=== PATIENT | male | born 1965 | race Caucasian/White ===

== ENCOUNTER 2016-11-15 12:24 | Outpatient (CLI) | payer MEDICARE ==
[~2016-11-15] VITALS: Ht 177.8 cm; Wt 90.0 kg
[~2016-11-15 12:24] MED LIST: ALPR1TAB7 PO; BUSP10TA95 PO; DIVA500T7 PO; GABA-488 PO; GEMF600T3 PO; GLIP5TAB13 PO; HYDR-3720 PO; LORA10TA7 PO; METF500T4 PO; MONT10TA21 PO; NABU750T PO; NEUPOGEN SQ; NF-ESOM40C PO; ONDN4T PO; OXYC-12 PO; PARO40TA2 PO; PRAV40TA PO; PROB500T8 PO; PROP80CA39 PO; RIZA10TA23 PO; TIZA4CAP6 PO
[2016-11-15 12:30] VITALS: BP 109/63
[2016-11-15] MEDS ORDERED: FILG480S2 IJ (12:41)
[2016-11-15] MEDS ORDERED: MECL-106 PO (12:41)
[2016-11-15] MEDS ORDERED: LISI40TA PO (12:41)
[2016-11-15] MEDS ORDERED: SUMA100T3 PO (12:41)
[2016-11-15] MEDS ORDERED: CITA40TA11 PO (12:41)
[2016-11-15] MEDS ORDERED: OMEP40CA36 PO (12:41)
--- OUTSIDE RECORDS SUMMARY | 2016-11-15 12:45 | XMS REPORT ---
Author Author Dominga Cline Organization [facility] Address [address] [place], [place] [id number] Care Team Providers Care Patient Resource Specialist Name Role Phone Dominga Cline PCP Dominga Cline PreferredProvider Allergies and Adverse Reactions Name Reaction Notes NO KNOWN DRUG ALLERGIES Plan of Treatment Planned Activity Comments Planned Date Planned Time Plan/Goal TDAP (7 & Older) 05/03/2016 12:00 AM Hemoglobin A1c measurement 08/10/2016 12:00 AM Thyroid stimulating hormone (TSH) measurement 08/10/2016 12:00 AM LIPID PANEL 08/10/2016 12:00 AM MICROALBUMIN UR RANDOM 08/10/2016 12:00 AM BMP 10/31/2016 12:00 AM CBC with Auto 10/31/2016 12:00 AM CX CHEST 2 VIEWS 10/31/2016 12:00 AM EKG. 10/31/2016 12:00 AM *Injection,Subcutaneous/Intramuscul 03/20/2013 12:00 AM Uric Acid 05/04/2013 12:00 AM CBC, WBC, platelets and automated differential 11/06/2013 12:00 AM CMP-Comprehensive metabolic panel 11/06/2013 12:00 AM CBC + platelets + diff auto 04/20/2014 12:00 AM CMP (comprehensive metabolic panel) 04/20/2014 12:00 AM Medications Active Name Start Date Estimated Completion Date SIG Comments rizatriptan 10 mg oral tablet 03/11/2014 TAKE ONE TABLET BY MOUTH ONCE, MAY REPEAT AT TWO HOUR INTERVALS. DO NOT EXCEED 30MG IN 24 HOURS. propranolol 80 mg oral tablet 09/13/2014 TAKE ONE TABLET BY MOUTH TWICE DAILY Maxalt 10 mg oral tablet 10/13/2014 take 1 tablet (10 mg) by oral route once , may repeat at 2 hour intervals; do not exceed 30 mg in 24 hours for 7 days divalproex 500 mg oral tablet extended release 24 hr 10/13/2014 take 1 tablet (500 mg) by oral route once daily for 30 days Neupogen 480 mcg/1.6 mL injection solution glipizide 2.5 mg oral tablet extended release 24hr 02/08/2015 TAKE TWO TABLETS BY MOUTH ONCE DAILY WITH BREAKFAST LORATADINE 10MG TAB 04/12/2015 TAKE ONE TABLET BY MOUTH ONCE DAILY meclizine 25 mg oral tablet 05/12/2015 TAKE ONE TABLET BY MOUTH TWICE DAILY NEEDED DIZZINESS rizatriptan 10 mg oral tablet 07/11/2015 TAKE ONE TABLET BY MOUTH AT ONSET OF MIGRAINE, MAY REPEAT AT 2 HOUR INTERVALS. DO NOT EXCEED 30 MG IN 24 HOURS metformin 500 mg oral tablet 08/01/2015 01/22/2017 take 1 tablet by oral route 2 times a day for 90 days glipizide 2.5 mg oral tablet extended release 24hr 08/02/2015 TAKE TWO TABLETS BY MOUTH ONCE DAILY WITH BREAKFAST LORATADINE 10MG TAB 08/10/2015 TAKE ONE TABLET BY MOUTH ONCE DAILY Synvisc 16 mg/2 mL intra-articular syringe 08/24/2015 inject 2 milliliters by intra-articular route x 1 - left ankle x 1 right ankle rizatriptan 10 mg oral tablet 10/12/2015 TAKE ONE TABLET BY MOUTH AT ONSET OF MIGRAINE, MAY REPEAT AT 2 HOUR INTERVALS. DO NOT EXCEED 30 MG IN 24 HOURS divalproex 500 mg oral tablet extended release 24 hr 10/12/2015 TAKE ONE TABLET BY MOUTH ONCE DAILY metformin 500 mg oral tablet 10/12/2015 TAKE TWO TABLETS BY MOUTH TWICE DAILY omeprazole 40 mg oral capsule,delayed release(DR/EC) 10/20/2015 TAKE ONE CAPSULE BY MOUTH ONCE DAILY LORATADINE 10MG TAB 11/11/2015 TAKE ONE TABLET BY MOUTH ONCE DAILY Maxalt 10 mg oral tablet 01/09/2016 take 1 tablet (10 mg) by oral route once , may repeat at 2 hour intervals; do not exceed 30 mg in 24 hours for 7 days meclizine 25 mg oral tablet 02/13/2016 TAKE ONE TABLET BY MOUTH TWICE DAILY NEEDED FOR DIZZINESS LORATADINE 10MG TAB 02/22/2016 TAKE ONE TABLET BY MOUTH ONCE DAILY glipizide 2.5 mg oral tablet extended release 24hr 02/22/2016 TAKE TWO TABLETS BY MOUTH ONCE DAILY WITH BREAKFAST tizanidine 4 mg oral tablet 03/12/2016 TAKE ONE TABLET BY MOUTH THREE TIMES DAILY NEEDED pravastatin 40 mg oral tablet 03/13/2016 TAKE ONE TABLET BY MOUTH ONCE DAILY AT BEDTIME buspirone 10 mg oral tablet 05/09/2016 TAKE ONE TABLET BY MOUTH THREE TIMES DAILY divalproex 500 mg oral tablet extended release 24 hr 06/12/2016 TAKE ONE TABLET BY MOUTH ONCE DAILY glipizide 2.5 mg oral tablet extended release 24hr 06/12/2016 TAKE TWO TABLETS BY MOUTH ONCE DAILY WITH BREAKFAST metformin 500 mg oral tablet 06/12/2016 TAKE TWO TABLETS BY MOUTH TWICE DAILY propranolol 80 mg oral tablet 06/12/2016 TAKE ONE TABLET BY MOUTH TWICE DAILY lisinopril 10 mg oral tablet 08/10/2016 02/06/2017 take 1 tablet (10 mg) by oral route once daily for 30 days gabapentin 300 mg oral capsule 08/13/2016 TAKE TWO CAPSULES BY MOUTH THREE TIMES DAILY FOR 30 DAYS Celexa 40 mg oral tablet 08/16/2016 07/12/2017 take 1 tablet (40 mg) by oral route once daily in the morning for 30 days oxycodone-acetaminophen 7.5-325 mg oral tablet 10/09/2016 11/08/2016 take 1 tablet by oral route every 8 hours as needed for 30 days pain tizanidine 4 mg oral tablet 10/15/2016 TAKE ONE TABLET BY MOUTH THREE TIMES DAILY NEEDED pravastatin 40 mg oral tablet 10/15/2016 TAKE ONE TABLET BY MOUTH ONCE DAILY AT BEDTIME alprazolam 1 mg oral tablet 10/15/2016 11/14/2016 take 0.5 tablet by oral route 2 times a day for 30 days sumatriptan succinate 25 mg oral tablet 10/15/2016 12/14/2016 take 1 tablet ( 25 mg) by oral route once with fluids as early as possible after the onset of a migraine attack;may repeat after 2 hours if headache returns, not to exceed 200mg in 24hrs for 30 days Name Start Date Expiration Date SIG Comments cyclobenzaprine 10 mg oral tablet 05/30/2010 07/29/2010 take 1 tablet by oral route 2 times a day as needed for 30 days tramadol 50 mg oral tablet 08/10/2010 10/09/2010 take 1-2 tablets by oral route every 8 hours as needed for 30 days Bactrim DS 800-160 mg oral tablet 08/14/2010 08/24/2010 take 1 tablet by oral route every 12 hours for 10 days Tessalon Perles 100 mg oral capsule 01/04/2011 01/14/2011 take 1 capsule (100 mg) by oral route 3 times per day for 10 days PAROXETINE 20MG TAB 20 each 02/08/2011 03/10/2011 2QD - TAKE TWO TABLETS BY MOUTH EVERY DAY Bactrim DS 800-160 mg oral tablet 02/13/2011 02/23/2011 take 1 tablet by oral route every 12 hours for 10 days Dexilant 60 mg oral capsule,biphase delayed releas 10/05/2011 11/04/2011 TAKE ONE BY MOUTH EVERY DAY not on pt formulary alprazolam 0.5 mg oral tablet 10/10/2011 11/09/2011 take 1 tablet by oral route 2 times a day as needed for 30 days Relpax 40 mg oral tablet 10/11/2011 10/11/2011 take 1 tablet (40 mg) by oral route ; if headache returns, the dose may be repeated after 2 hours, but no more than two doses should be given within a 24-hour period. not on formulary colchicine 0.6 mg 10/17/2011 02/14/2012 1 tab po daily amoxicillin 875 mg oral tablet 10/30/2011 11/09/2011 take 1 tablet (875 mg) by oral route every 12 hours for 10 days probenecid Oral 500 mg 11/14/2011 02/12/2012 1 tab po BID Niaspan Extended-Release 500 mg oral tablet extended release 24 hr 01/09/2012 07/07/2012 take 1 tablet (500 mg) by oral route once daily at bedtime after a low-fat snack - after 4 weeks increase to 2 tablets hs divalproex 250 mg oral tablet,delayed release (DR/EC) 07/07/2012 08/06/2012 TAKE ONE TABLET BY MOUTH TWICE DAILY tramadol 50 mg oral tablet 08/10/2010 09/09/2010 [id number] - TAKE ONE TO TWO TABLETS BY MOUTH EVERY 8 HOURS NEEDED FOR PAIN NORFLEX 100MG CR TAB 100 each 12/29/2010 01/18/2011 [id number] - TAKE ONE TABLET BY MOUTH TWICE DAILY NEEDED gemfibrozil 600 mg oral tablet 11/09/2011 12/09/2011 TAKE ONE TABLET BY MOUTH TWICE DAILY FOR TRIGLYCERIDES paroxetine HCl 40 mg oral tablet 02/06/2012 03/07/2012 TAKE ONE TABLET BY MOUTH EVERY DAY Klor-Con M20 20 mEq oral tablet,ER particles/crystals 04/01/2012 05/01/2012 TAKE ONE TABLET BY MOUTH EVERY DAY Niaspan Extended-Release 1,000 mg oral tablet extended release 24 hr 05/12/2012 06/11/2012 TAKE ONE TABLET BY MOUTH AT BEDTIME orphenadrine citrate 100 mg oral tablet extended release 09/10/20112010 TAKE ONE TABLET BY MOUTH TWICE DAILY NEEDED FOR PAIN Singulair 10 mg oral tablet 08/08/2012 09/07/2012 TAKE ONE TABLET BY MOUTH IN THE EVENING Augmentin 875-125 mg oral tablet 10/13/2012 10/23/2012 take 1 tablet by oral route every 12 hours for 10 days EpiPen 0.3 mg/0.3 mL injection auto-injector 01/05/2013 01/06/2013 INJECT 0.3MG INTRAMUSCULARLY ONCE NEEDED FOR ANAPHYLAXIS Tamiflu 75 mg oral capsule 01/05/2013 01/10/2013 take 1 capsule (75 mg) by oral route 2 times per day for 5 days divalproex 250 mg oral tablet,delayed release (DR/EC) 02/07/2013 03/09/2013 TAKE ONE TABLET BY MOUTH THREE TIMES DAILY Zithromax Z-Joseph 250 mg oral tablet 06/19/2013 06/24/2013 take 2 tablets (500 mg) by oral route once daily for 1 day then 1 tablet (250 mg) by oral route once daily for 4 days nabumetone 750 mg oral tablet 07/10/2013 07/10/2013 take 1 tablet (750 mg) by oral route 2 times per day Bactrim DS 800-160 mg oral tablet 07/23/2013 08/02/2013 take 1 tablet by oral route every 12 hours for 10 days Bactrim DS 800-160 mg oral tablet 09/17/2012 10/13/2012 take 1 tablet by oral route every 12 hours for 10 days diclofenac sodium 75 mg oral tablet,delayed release (DR/EC) 02/10/20102012 cyclobenzaprine 10 mg oral tablet 11/01/2010 11/05/2012 tizanidine 2 mg oral capsule 11/05/2012 12/19/2012 take 1 capsules by oral route every8 hours/PRN Medrol (Joseph) 4 mg oral tablets,dose pack 08/21/2013 08/28/2013 take as directed for 7 days probenecid 500 mg oral tablet 05/04/2013 10/31/2013 take 1 tablet by oral route 2 times a day for 30 days Duexis 800-26.6 mg oral tablet 08/26/2013 09/25/2013 take 1 tablet by oral route 3 times per day for 30 days Synvisc 16 mg/2 mL intra-articular syringe 08/31/2013 09/03/2013 inject 2 milliliters by intra-articular route once a week for 3 days Bactrim DS 800-160 mg oral tablet 09/23/2013 10/03/2013 take 1 tablet by oral route 2 times per day for 10 days lisinopril 20 mg oral tablet 09/11/2013 03/10/2014 take 1 tablet (20 mg) by oral route once daily for 90 days ibuprofen 800 mg oral tablet 10/13/2013 04/11/2014 take 1 tablet by oral route 3 times a day for 30 days tizanidine 4 mg oral capsule 01/13/2014 01/08/2015 take 1 capsule by oral route 3 times a day as needed for 30 days nabumetone 750 mg oral tablet 01/17/2014 07/16/2014 take 1 tablet (750 mg) by oral route 2 for 90 days hydrocortisone acetate 30 mg rectal suppository 02/09/2014 03/09/2014 insert 1 suppository (30 mg) by rectal route 2 times per day in the morning and at for 14 days metformin 500 mg oral tablet 03/12/2014 09/08/2014 TAKE TWO TABLETS BY MOUTH TWICE DAILY loratadine 10 mg oral tablet 03/12/2014 03/07/2015 TAKE ONE TABLET BY MOUTH EVERY DAY Singulair 10 mg oral tablet 03/15/2014 09/11/2014 take 1 tablet (10 mg) by oral route once daily in the evening for 30 days Glucometer 3 1 meter/starter kit 04/02/2014 05/02/2014 Tests QD. Needs new meter and one month strips. Uncontrolled DMII with periods of hypoglycemia. promethazine-codeine 6.25-10 mg/5 mL oral syrup 04/13/2014 take 5 milliliters by oral route every 4-6 hours as needed, not to exceed 30 mL in 24 hours propranolol 80 mg oral tablet 04/20/2014 08/18/2014 TAKE ONE TABLET BY MOUTH TWICE DAILY probenecid 500 mg oral tablet 06/18/2014 10/16/2014 1 tab po BID Maxalt 10 mg oral tablet 07/16/2014 07/30/2014 take 1 tablet (10 mg) by oral route once, may repeat at 2 hour intervals; do not exceed 30 mg in 24 hours for 7 days divalproex 500 mg oral tablet extended release 24 hr 07/16/2014 10/14/2014 take 1 tablet (500 mg) by oral route once daily for 30 days glipizide 2.5 mg oral tablet extended release 24hr 08/12/2014 02/08/2015 take 2 tablets (5 mg) by oral route once daily with breakfast for 90 days meclizine 25 mg oral tablet 10/12/2014 01/10/2015 TAKE ONE TABLET BY MOUTH TWICE DAILY NEEDED DIZZINESS metoclopramide HCl 10 mg oral tablet 01/31/2015 03/02/2015 take 1 tablet by oral route 2 times a day for 30 days Tylenol Extra Strength 500 mg oral tablet 01/31/2015 07/30/2015 take 1 tablet by oral route every 12 hours for 30 days pravastatin 40 mg oral tablet 03/14/2015 03/08/2016 take 1 tablet (40 mg) by oral route once daily at bedtime for 90 days buspirone 10 mg oral tablet 05/12/2015 11/08/2015 TAKE ONE TABLET BY MOUTH THREE TIMES DAILY propranolol 80 mg oral tablet 05/12/2015 11/08/2015 TAKE ONE TABLET BY MOUTH TWICE DAILY for 30 days lisinopril 20 mg oral tablet 05/16/2015 10/13/2015 take 1 tablet (20 mg) by oral route once daily for 30 days Tessalon Perles 100 mg oral capsule 10/24/2015 take 1 capsule by oral route TID PRN for cough codeine-guaifenesin 10-100 mg/5 mL oral liquid 10/24/2015 10/29/2015 take 10 milliliters by oral route every 4 hours as needed for 5 days gabapentin 300 mg oral capsule 03/12/2016 06/10/2016 take 2 capsules (600 mg) by oral route 3 times per day for 30 days Voltaren 1 % topical gel 03/15/2016 04/14/2016 apply 4 gram to the affected area (s) by topical route 4 times per day for 30 days Sudafed PE Pressure+Pain+Cough 5-10-325 mg oral tablet 04/03/2016 04/10/2016 take 1 tablet by oral route as directed ProAir HFA 90 mcg/actuation inhalation HFA aerosol inhaler 04/03/20162015 inhale 1 puff (90 mcg) by inhalation route every 6 hours as needed for 30 days Discontinued Name Start Date Discontinued Date SIG Comments Lortab 7.5-500 mg oral tablet 01/09/2010 04/04/2010 1 tab TID prn pain famotidine 20 mg oral tablet 01/11/2010 07/10/2011 take 1 tablet (20 mg) by oral route 2 times per day diclofenac sodium 75 mg oral tablet,delayed release (DR/EC) 02/10/20102009 take 1 tablet (75 mg) by oral route 2 times per day sulindac 200 mg oral tablet 10/24/2010 take 1 tablet (200 mg) by oral route 2 times per day with food paroxetine HCl 40 mg oral tablet 06/08/2010 01/01/2011 take 1 tablet (40 mg) by oral route daily for 30 days Medrol (Joseph) 4 mg oral tablets,dose pack 07/27/2010 08/14/2010 take as directed by package insert Bactroban 2 % topical ointment 08/14/2010 11/13/2010 apply 1/2 gram to each nostril bid for 5 days lisinopril-hydrochlorothiazide 20-12.5 mg oral tablet 10/16/2010 11/13/2010 take 1 tablet by oral route once daily for 30 days nabumetone 750 mg oral tablet 11/13/2010 take 1 tablet (750 mg) by oral route 2 times per day metformin 1,000 mg oral tablet 02/06/2013 take 1 tablet (1,000 mg) by oral route 2 times per day with morning and evening meals Lopid 600 mg oral tablet 05/07/2011 take 1 tablet (600 mg) by oral route 2 times per day 30 minutes before morning and evening meal potassium chloride 20 mEq oral tablet,ER particles/crystals 02/06/2013 take 1 tablet (20 meq) by oral route once daily with food cyclobenzaprine 10 mg oral tablet 05/17/2011 take 1 tablet (10 mg) by oral route 2 times per day /PRN Colace 100 mg oral capsule 05/04/2013 take 1 capsule (100 mg) by oral route 2 times per day as needed nabumetone 750 mg oral tablet 11/05/2012 take 2 tablets (1,500 mg) by oral route once daily gemfibrozil 600 mg oral tablet 05/07/2011 take 1 tablet (600 mg) by oral route 2 times per day 30 minutes before morning and evening meal fluoxetine 40 mg oral capsule 01/01/2011 01/09/2011 take 1 capsule (40 mg) by oral route once daily in the morning sertraline 50 mg oral tablet 01/09/2011 02/08/2011 take 1 tablet (50 mg) by oral route once daily Norflex 100 mg 05/17/2011 07/10/2011 1 tab po BID/PRN norflex orally 10 mg 09/11/2011 1 tab po BID Maxalt 10 mg oral tablet 10/23/2011 05/04/2013 take 1 tablet (10 mg) by oral route once, may repeat at 2 hour intervals; do not exceed 30 mg in 24 hours Norflex 100 mg 12/20/2011 04/16/2012 1 tab po BID/PRN paroxetine HCl 40 mg oral tablet 01/09/2012 04/10/2012 TAKE ONE TABLET BY MOUTH EVERY DAY Cymbalta 60 mg oral capsule,delayed release(DR/EC) 04/10/2012 04/22/2012 take 1 capsule (60 mg) by oral route once daily Effexor XR 75 mg oral capsule,extended release 24hr 04/22/2012 04/30/2012 take 1 capsule (75 mg) by oral route once daily with food Xanax 0.5 mg oral tablet 04/30/2012 09/22/2012 take 1 tablet by oral route 2 times a day as needed Depakote 250 mg oral tablet,delayed release (DR/EC) 07/11/2012 05/04/2013 take 1 tablet (250 mg) by oral route 3 times per day albuterol sulfate 90 mcg/actuation inhalation HFA aerosol inhaler 10/13/201205/12/2013 inhale 1 - 2 puffs by inhalation route every 4 hours as needed omeprazole 40 mg oral capsule,delayed release(DR/EC) 11/13/2012 04/13/2013 take 1 capsule by oral route daily Nexium 40 mg oral capsule,delayed release(DR/EC) 04/13/2013 10/08/2013 take 1 capsule (40 mg) by oral route once daily for 30 days omeprazole 40 mg oral capsule,delayed release(DR/EC) 05/18/2013 06/17/2013 take 1 capsule (40 mg) by oral route once daily before a meal for 30 days promethazine-codeine 6.25-10 mg/5 mL oral syrup 06/12/2013 08/31/2013 take 5 milliliters by oral route every 4-6 hours as needed, not to exceed 30 mL in 24 hours Percocet 5-325 mg oral tablet 08/17/2013 take 1 tablet by oral route every 6 hours as needed divalproex 250 mg oral tablet,delayed release (DR/EC) 09/10/2013 11/06/2013 TAKE ONE TABLET BY MOUTH THREE TIMES DAILY Dexilant 60 mg oral capsule,biphase delayed releas 04/13/2014 orphenadrine citrate 100 mg oral tablet extended release 12/31/2013 take 1 tablet (100 mg) by oral route 2 times per day in the morning and evening paroxetine HCl 40 mg oral tablet 01/13/2014 11/09/2014 take 1 tablet (40 mg) by oral route once daily for 90 days Megace 400 mg/10 mL (40 mg/mL) oral suspension 04/23/2014 06/18/2014 take 10 milliliters (400 mg) by oral route once daily for 30 days Zofran (as hydrochloride) 4 mg oral tablet 04/23/2014 01/31/2015 take 1 tab PO every 6-8 hours as needed for nausea and/or vomiting hydrocodone-acetaminophen 10-325 mg oral tablet 09/10/2014 09/27/2014 take 1 tablet by oral route every 8 hours as needed for 31 days probenecid 500 mg oral tablet 10/11/2014 03/14/2015 TAKE ONE TABLET BY MOUTH TWICE DAILY Nexium 40 mg oral capsule,delayed release(DR/EC) 11/11/2014 01/31/2015 take 1 capsule (40 mg) by oral route once daily for 30 days gemfibrozil 600 mg oral tablet 01/14/2015 05/02/2015 take 1 tablet (600 mg) by oral route 2 times per day 30 minutes before morning and evening meal for 90 days Problem List Description Status Onset SI joint pain Active 08/25/2009 Pain in joint; ankle and foot Active 08/25/2009 Cervicalgia Active 08/25/2009 arthritis Active Depressive Disorder Active Joint Pain Active chronic lumbar back pain Active Osteoporosis Active Hypertension Active Diabetes Mellitus, Type II Active Migraine Active 09/06/2011 Esophageal Reflux Active 11/06/2013 Ankle pain, chronic, right Active 09/06/2015 Chronic ankle pain, left Active 09/13/2015 Vital Signs Date Time BP-Sys(mm[Hg] BP-Emily(mm[Hg]) HR(bpm) RR(rpm) Temp WT HT HC BMI BSA BMI Percentile O2 Sat(%) 08/10/2016 8:33:00 AM 110 mmHg 80 mmHg 67 bpm 16 rpm 97.7 F 197.125 lbs 70 in 28.28 kg/m2 2.10 m2 99 % 07/16/2016 2:32:00 PM 118 mmHg 72 mmHg 75 bpm 16 rpm 100 F 201.125 lbs 70 in 28.8581 kg/m 2.1227 m 99 % 06/05/2016 9:22:00 AM 132 mmHg 74 mmHg 66 bpm 16 rpm 98.5 F 195 lbs 70 in 27.98 kg/m2 2.09 m2 98 % 05/03/2016 1:38:00 PM 100 mmHg 70 mmHg 79 bpm 16 rpm 100.4 F 190 lbs 70 in 27.2619 kg/m 2.0631 m 98 % 04/03/2016 11:19:00 AM 118 mmHg 70 mmHg 72 bpm 18 rpm 99.3 F 198.25 lbs 70 in 28.45 kg/m2 2.11 m2 98 % 03/15/2016 8:42:00 AM 118 mmHg 68 mmHg 78 bpm 18 rpm 97.6 F 201 lbs 71 in 28.0335 kg/m 2.1371 m 97 % 02/13/2016 8:50:00 AM 130 mmHg 80 mmHg 67 bpm 16 rpm 97.8 F 208 lbs 70 in 29.84 kg/m2 2.16 m2 98 % 01/13/2016 8:55:00 AM 100 mmHg 60 mmHg 71 bpm 16 rpm 96.7 F 209 lbs 70 in 29.9881 kg/m 2.1638 m 99 % 12/16/2015 10:50:00 AM 108 mmHg 60 mmHg 68 bpm 16 rpm 97.8 F 209 lbs 70 in 29.99 kg/m2 2.16 m2 97 % 11/21/2015 4:01:00 PM 124 mmHg 84 mmHg 86 bpm 99.5 F 211 lbs 70 in 30.275 kg/m 2.1742 m 96 % 10/24/2015 9:12:00 AM 79 bpm 20 rpm 98.9 F 204.2 lbs 97 % 10/21/2015 9:28:00 AM 108 mmHg 60 mmHg 73 bpm 98 F 202.25 lbs 70 in 29.02 kg/m2 2.1286 m 96 % 09/13/2015 9:43:00 AM 122 mmHg 64 mmHg 80 bpm 20 rpm 97.8 F 200 lbs 70 in 28.6967 kg/m 2.12 m2 09/06/2015 1:42:00 PM 112 mmHg 66 mmHg 84 bpm 20 rpm 97.8 F 200 lbs 70 in 28.70 kg/m2 2.1167 m 08/23/2015 1:50:00 PM 116 mmHg 72 mmHg 66 bpm 18 rpm 97 F 200 lbs 70 in 28.6967 kg/m 2.12 m2 08/01/2015 11:28:00 AM 118 mmHg 64 mmHg 66 bpm 97.8 F 199.375 lbs 70 in 28.61 kg/m2 2.1134 m 96 % 07/04/2015 10:08:00 AM 110 mmHg 64 mmHg 66 bpm 18 rpm 97.3 F 205 lbs 70 in 29.4141 kg/m 2.14 m2 06/06/2015 10:02:00 AM 114 mmHg 74 mmHg 68 bpm 18 rpm 96 F 206 lbs 70 in 29.56 kg/m2 2.1482 m 05/09/2015 1:19:00 PM 108 mmHg 70 mmHg 71 bpm 20 rpm 96.5 F 208 lbs 70 in 29.8446 kg/m 2.16 m2 05/02/2015 1:37:00 PM 120 mmHg 74 mmHg 82 bpm 18 rpm 97.6 F 208.375 lbs 70 in 29.90 kg/m2 2.1606 m 98 % 04/11/2015 1:17:00 PM 138 mmHg 84 mmHg 75 bpm 22 rpm 96.8 F 209 lbs 70 in 29.9881 kg/m 2.16 m2 04/04/2015 11:02:00 AM 128 mmHg 82 mmHg 71 bpm 20 rpm 96.3 F 204 lbs 70 in 29.27 kg/m2 2.1378 m 03/14/2015 1:46:00 PM 128 mmHg 82 mmHg 84 bpm 18 rpm 97.5 F 204 lbs 70 in 29.2707 kg/m 2.14 m2 02/10/2015 10:15:00 AM 96 mmHg 58 mmHg 62 bpm 18 rpm 97 F 208 lbs 70 in 29.84 kg/m2 2.1586 m 01/31/2015 1:24:00 PM 120 mmHg 88 mmHg 80 bpm 98.8 F 205.5 lbs 70 in 29.4859 kg/m 2.15 m2 97 % 01/13/2015 1:01:00 PM 130 mmHg 88 mmHg 68 bpm 16 rpm 97.2 F 209.125 lbs 70 in 30.01 kg/m2 2.1645 m 12/16/2014 1:07:00 PM 108 mmHg 62 mmHg 78 bpm 18 rpm 97.5 F 205 lbs 70 in 29.4141 kg/m 2.14 m2 12/01/2014 1:02:00 PM 132 mmHg 64 mmHg 76 bpm 20 rpm 97.1 F 205 lbs 70 in 29.41 kg/m2 2.143 m 11/23/2014 9:40:00 AM 108 mmHg 60 mmHg 76 bpm 18 rpm 97.4 F 205 lbs 70 in 29.4141 kg/m 2.14 m2 11/09/2014 11:38:00 AM 100 mmHg 60 mmHg 82 bpm 18 rpm 97.8 F 199.5 lbs 70 in 28.62 kg/m2 2.1141 m 96 % 10/25/2014 12:53:00 PM 100 mmHg 64 mmHg 73 bpm 18 rpm 97 F 206 lbs 70 in 29.5576 kg/m 2.15 m2 10/14/2014 10:47:00 AM 120 mmHg 80 mmHg 82 bpm 20 rpm 98.3 F 208.2 lbs 70 in 29.87 kg/m2 2.1597 m 97 % 09/27/2014 1:39:00 PM 112 mmHg 70 mmHg 78 bpm 16 rpm 98.4 F 200 lbs 70 in 28.6967 kg/m 2.12 m2 09/01/2014 10:04:00 AM 110 mmHg 60 mmHg 80 bpm 18 rpm 96 F 208 lbs 70 in 29.84 kg/m2 2.1586 m 97 % 08/13/2014 9:55:00 AM 132 mmHg 80 mmHg 72 bpm 16 rpm 97.9 F 206 lbs 70 in 29.5576 kg/m 2.15 m2 08/09/2014 1:16:00 PM 132 mmHg 70 mmHg 87 bpm 18 rpm 98.7 F 205.375 lbs 70 in 29.47 kg/m2 2.145 m 98 % 07/30/2014 9:32:00 AM 122 mmHg 70 mmHg 82 bpm 18 rpm 98.8 F 212 lbs 70 in 30.4185 kg/m 2.18 m2 98 % 07/16/2014 8:36:00 AM 124 mmHg 86 mmHg 64 bpm 16 rpm 98 F 219 lbs 70 in 31.42 kg/m2 2.215 m 06/18/2014 9:21:00 AM 120 mmHg 80 mmHg 74 bpm 16 rpm 97.6 F 207 lbs 70 in 29.7011 kg/m 2.15 m2 06/15/2014 8:14:00 AM 105 mmHg 70 mmHg 76 bpm 18 rpm 97.5 F 211 lbs 70 in 30.28 kg/m2 2.1742 m 96 % 04/23/2014 2:06:00 PM 101 mmHg 79 mmHg 91 bpm 20 rpm 98.7 F 193.4 lbs 70 in 27.7497 kg/m 2.08 m2 96 % 04/13/2014 9:26:00 AM 116 mmHg 80 mmHg 95 bpm 18 rpm 97.9 F 202 lbs 70 in 28.98 kg/m2 2.1273 m 98 % 03/31/2014 11:04:00 AM 108 mmHg 75 mmHg 73 bpm 16 rpm 98.2 F 211.375 lbs 70 in 30.3288 kg/m 2.18 m2 95 % 03/25/2014 9:56:00 AM 110 mmHg 84 mmHg 72 bpm 16 rpm 97.2 F 211 lbs 70 in 30.28 kg/m2 2.1742 m 01/13/2014 1:25:00 PM 134 mmHg 74 mmHg 88 bpm 18 rpm 99 F 210.5 lbs 70 in 30.2033 kg/m 2.17 m2 96 % 01/06/2014 10:41:00 AM 118 mmHg 75 mmHg 76 bpm 18 rpm 98.7 F 210 lbs 70 in 30.13 kg/m2 2.169 m 98 % 12/31/2013 9:05:00 AM 124 mmHg 82 mmHg 80 bpm 16 rpm 96.6 F 213 lbs 70 in 30.562 kg/m 2.1844 m 11/20/2013 10:20:00 AM 142 mmHg 80 mmHg 78 bpm 18 rpm 97 F 216 lbs 70 in 30.99 kg/m2 2.20 m2 11/06/2013 8:49:00 AM 132 mmHg 86 mmHg 78 bpm 16 rpm 98 F 213.312 lbs 70 in 30.6068 kg/m 2.186 m 11/04/2013 3:02:00 PM 110 mmHg 74 mmHg 88 bpm 18 rpm 98.6 F 215 lbs 70 in 30.85 kg/m2 2.19 m2 96 % 10/30/2013 8:59:00 AM 110 mmHg 74 mmHg 76 bpm 16 rpm 98.2 F 10/09/2013 9:39:00 AM 124 mmHg 60 mmHg 82 bpm 18 rpm 97.6 F 221 lbs 70 in 31.71 kg/m2 2.23 m2 10/08/2013 2:51:00 PM 132 mmHg 80 mmHg 82 bpm 18 rpm 98.4 F 223 lbs 70 in 31.9968 kg/m 2.2351 m 98 % 09/23/2013 2:28:00 PM 160 mmHg 88 mmHg 78 bpm 18 rpm 97.4 F 70 in 97 % 09/15/2013 8:36:00 AM 122 mmHg 80 mmHg 78 bpm 16 rpm 97.9 F 100 % 09/11/2013 10:05:00 AM 112 mmHg 80 mmHg 74 bpm 16 rpm 98.8 F 225.375 lbs 96 % 09/11/2013 8:51:00 AM 122 mmHg 70 mmHg 74 bpm 22 rpm 97.1 F 225 lbs 70 in 32.2838 kg/m 2.2451 m 08/31/2013 10:34:00 AM 142 mmHg 92 mmHg 76 bpm 16 rpm 98 F 223 lbs 95 % 08/24/2013 2:40:00 PM 148 mmHg 88 mmHg 78 bpm 20 rpm 98.5 F 222 lbs 70 in 31.8534 kg/m 2.2301 m 07/23/2013 11:07:00 AM 124 mmHg 86 mmHg 69 bpm 16 rpm 97.9 F 222 lbs 98 % 07/17/2013 12:22:00 PM 122 mmHg 64 mmHg 79 bpm 18 rpm 07/17/2013 10:13:00 AM 132 mmHg 84 mmHg 88 bpm 20 rpm 97.4 F 218 lbs 70 in 31.28 kg/m2 2.21 m2 07/16/2013 10:26:00 AM 130 mmHg 60 mmHg 72 bpm 18 rpm 98 F 218 lbs 98 % 06/19/2013 9:24:00 AM 126 mmHg 66 mmHg 82 bpm 18 rpm 97.2 F 219 lbs 70 in 31.42 kg/m2 2.21 m2 97 % 06/17/2013 9:38:00 AM 138 mmHg 80 mmHg 78 bpm 16 rpm 217 lbs 70 in 31.1359 kg/m 2.2048 m 06/12/2013 10:24:00 AM 118 mmHg 60 mmHg 66 bpm 18 rpm 97 F 213.5 lbs 70 in 30.63 kg/m2 2.19 m2 99 % 05/12/2013 10:32:00 AM 95 mmHg 63 mmHg 70 bpm 20 rpm 97.5 F 206 lbs 70 in 29.5576 kg/m 2.1482 m 98 % 05/04/2013 9:03:00 AM 104 mmHg 70 mmHg 64 bpm 16 rpm 96.2 F 204.187 lbs 70 in 29.30 kg/m2 2.14 m2 04/13/2013 10:47:00 AM 128 mmHg 90 mmHg 67 bpm 16 rpm 97.7 F 214.375 lbs 98 % 03/20/2013 10:39:00 AM 85 mmHg 62 mmHg 74 bpm 18 rpm 98.2 F 212 lbs 70 in 30.42 kg/m2 2.18 m2 99 % 02/18/2013 7:50:00 AM 118 mmHg 90 mmHg 66 bpm 16 rpm 97.6 F 222.125 lbs 70 in 31.8713 kg/m 2.2307 m 02/06/2013 11:21:00 AM 144 mmHg 98 mmHg 67 bpm 16 rpm 97.1 F 226.375 lbs 98 % 01/12/2013 9:36:00 AM 124 mmHg 72 mmHg 69 bpm 16 rpm 97.2 F 223.25 lbs 96 % 01/05/2013 10:18:00 AM 119 mmHg 81 mmHg 105 bpm 20 rpm 100 F 223 lbs 69 in 32.93 kg/m2 2.22 m2 99 % 12/19/2012 1:08:00 PM 132 mmHg 80 mmHg 72 bpm 16 rpm 96.4 F 228 lbs 69 in 33.6694 kg/m 2.2438 m 10/22/2012 10:46:00 AM 120 mmHg 82 mmHg 76 bpm 16 rpm 97 F 228 lbs 70 in 32.71 kg/m2 2.26 m2 10/13/2012 9:07:00 AM 122 mmHg 80 mmHg 76 bpm 16 rpm 96.9 F 232 lbs 99 % 09/17/2012 9:53:00 AM 110 mmHg 60 mmHg 76 bpm 18 rpm 97.4 F 219 lbs 69 in 32.34 kg/m2 2.20 m2 08/19/2012 1:12:00 PM 124 mmHg 76 mmHg 64 bpm 16 rpm 97.5 F 218.125 lbs 99 % 08/14/2012 8:50:00 AM 118 mmHg 64 mmHg 84 bpm 16 rpm 97.6 F 225 lbs 70 in 32.28 kg/m2 2.25 m2 08/07/2012 2:37:00 PM 110 mmHg 70 mmHg 83 bpm 16 rpm 98.7 F 217.375 lbs 97 % 07/17/2012 8:39:00 AM 122 mmHg 80 mmHg 78 bpm 16 rpm 97 F 223 lbs 70 in 32.00 kg/m2 2.24 m2 07/11/2012 9:25:00 AM 122 mmHg 84 mmHg 78 bpm 16 rpm 97.7 F 221.375 lbs 100 % 06/02/2012 10:47:00 AM 130 mmHg 70 mmHg 84 bpm 16 rpm 98.4 F 216.5 lbs 98 % 04/30/2012 2:51:00 PM 130 mmHg 90 mmHg 75 bpm 16 rpm 98.1 F 215.25 lbs 99 % 04/16/2012 8:10:00 AM 110 mmHg 74 mmHg 64 bpm 16 rpm 97.6 F 221.375 lbs 71 in 30.88 kg/m2 2.24 m2 04/10/2012 9:28:00 AM 122 mmHg 90 mmHg 71 bpm 16 rpm 97.6 F 221.25 lbs 98 % 01/16/2012 8:11:00 AM 104 mmHg 70 mmHg 64 bpm 16 rpm 97.4 F 224 lbs 71 in 31.24 kg/m2 2.26 m2 01/09/2012 8:45:00 AM 124 mmHg 82 mmHg 69 bpm 16 rpm 97.4 F 217.5 lbs 98 % 11/14/2011 8:34:00 AM 110 mmHg 82 mmHg 68 bpm 16 rpm 96.8 F 214.5 lbs 71 in 29.92 kg/m2 2.21 m2 10/30/2011 2:49:00 PM 130 mmHg 70 mmHg 66 bpm 16 rpm 98.8 F 213 lbs 98 % 10/17/2011 8:37:00 AM 116 mmHg 82 mmHg 64 bpm 18 rpm 97.6 F 221.375 lbs 71 in 30.88 kg/m2 2.24 m2 10/10/2011 8:37:00 AM 122 mmHg 84 mmHg 84 bpm 16 rpm 96.8 F 223.25 lbs 71 in 31.1367 kg/m 2.2523 m 100 % 09/05/2011 3:41:00 PM 108 mmHg 66 mmHg 68 bpm 16 rpm 98.3 F 222.25 lbs 98 % 08/17/2011 8:49:00 AM 104 mmHg 82 mmHg 64 bpm 16 rpm 96.6 F 222.125 lbs 71 in 30.9798 kg/m 2.2466 m 07/10/2011 8:37:00 AM 134 mmHg 92 mmHg 80 bpm 16 rpm 97 F 217 lbs 71 in 30.27 kg/m2 2.22 m2 98 % 06/22/2011 8:14:00 AM 110 mmHg 74 mmHg 72 bpm 16 rpm 96.8 F 05/17/2011 8:32:00 AM 120 mmHg 90 mmHg 72 bpm 16 rpm 97 F 222 lbs 71 in 30.96 kg/m2 2.25 m2 04/17/2011 9:21:00 AM 128 mmHg 76 mmHg 89 bpm 16 rpm 98 F 217.125 lbs 98 % 03/08/2011 9:31:00 AM 110 mmHg 75 mmHg 79 bpm 97.6 F 211 lbs 97 % 02/14/2011 8:36:00 AM 122 mmHg 80 mmHg 78 bpm 16 rpm 97.7 F 211 lbs 02/13/2011 3:19:00 PM 110 mmHg 80 mmHg 83 bpm 16 rpm 98.6 F 207.5 lbs 98 % 02/08/2011 9:52:00 AM 114 mmHg 82 mmHg 88 bpm 16 rpm 97.7 F 01/09/2011 8:40:00 AM 130 mmHg 90 mmHg 84 bpm 16 rpm 97.2 F 212 lbs 99 % 01/01/2011 11:17:00 AM 142 mmHg 92 mmHg 99 bpm 18 rpm 97.9 F 215.5 lbs 98 % 11/29/2010 10:47:00 AM 128 mmHg 88 mmHg 11/17/2010 8:45:00 AM 152 mmHg 94 mmHg 82 bpm 16 rpm 97.2 F 215.5 lbs 11/14/2010 8:55:00 AM 130 mmHg 102 mmHg 92 bpm 16 rpm 98.1 F 214.5 lbs 98 % 10/24/2010 8:14:00 AM 140 mmHg 80 mmHg 82 bpm 16 rpm 97.6 F 217.25 lbs 10/16/2010 1:30:00 PM 160 mmHg 100 mmHg 97 bpm 16 rpm 97.6 F 220.5 lbs 98 % 09/19/2010 3:42:00 PM 132 mmHg 90 mmHg 88 bpm 16 rpm 97.4 F 09/11/2010 9:47:00 AM 138 mmHg 112 mmHg 94 bpm 16 rpm 97.5 F 216.25 lbs 98 % 08/29/2010 1:15:00 PM 130 mmHg 94 mmHg 102 bpm 18 rpm 97.7 F 221.375 lbs 08/14/2010 11:03:00 AM 148 mmHg 86 mmHg 80 bpm 16 rpm 98.7 F 218.375 lbs 07/27/2010 11:11:00 AM 128 mmHg 82 mmHg 89 bpm 16 rpm 98.9 F 213 lbs 97 % 07/04/2010 10:04:00 AM 126 mmHg 74 mmHg 78 bpm 22 rpm 98.3 F 206 lbs 06/30/2010 8:38:00 AM 122 mmHg 80 mmHg 76 bpm 16 rpm 97.6 F 212 lbs 06/08/2010 10:17:00 AM 140 mmHg 90 mmHg 80 bpm 16 rpm 98.5 F 207.5 lbs 05/30/2010 8:38:00 AM 110 mmHg 80 mmHg 82 bpm 18 rpm 97.7 F 211.25 lbs 04/04/2010 10:22:00 AM 164 mmHg 96 mmHg 82 bpm 18 rpm 97.7 F 211 lbs 03/09/2010 9:48:00 AM 138 mmHg 98 mmHg 90 bpm 16 rpm 98.1 F 209.125 lbs 02/10/2010 9:58:00 AM 130 mmHg 82 mmHg 80 bpm 20 rpm 97.6 F 215 lbs 71 in 29.99 kg/m2 2.21 m2 02/08/2010 8:04:00 AM 114 mmHg 82 mmHg 80 bpm 18 rpm 98 F 214 lbs 01/11/2010 9:01:00 AM 120 mmHg 82 mmHg 88 bpm 18 rpm 98 F 220.375 lbs 71 in 30.74 kg/m2 2.24 m2 01/09/2010 2:34:00 PM 150 mmHg 90 mmHg 84 bpm 16 rpm 98.6 F 219 lbs 08/25/2009 1:08:00 PM 132 mmHg 84 mmHg 82 bpm 16 rpm 99.2 F 217 lbs Social History Name Description Comments lives with family member spouse has grown children GED Denies illicit substance abuse Alcohol Current - status unknown drinks less than 3-4 times per year Sedentary to painful to do any exercises Unemployed Did not serve recieving Social Security Disability Tobacco Former smoker History of Procedures Date Ordered Description Order Status 07/25/2015 12:00 AM COMPLETE CBC W/AUTO DIFF WBC Reviewed 07/25/2015 12:00 AM COMPREHEN METABOLIC PANEL Reviewed 07/25/2015 12:00 AM GLYCOSYLATED HEMOGLOBIN TEST Reviewed 07/25/2015 12:00 AM LIPID PANEL Reviewed 08/01/2015 12:00 AM OFFICE/OUTPATIENT VISIT EST Reviewed 06/22/2011 12:00 AM DRAIN/INJ JOINT/BURSA W/O US Reviewed 06/22/2011 12:00 AM Kenalog per 10Mg Im-[facility]#[address]-38(Sean) Reviewed 09/06/2015 12:00 AM Kenalog, Per 10 Mg [facility]#6248-9768-08 Reviewed 09/06/2015 12:00 AM DRAIN/INJ JOINT/BURSA W/O US Reviewed 07/10/2011 12:00 AM COMPREHEN METABOLIC PANEL Reviewed 07/10/2011 12:00 AM LIPID PANEL Reviewed 07/10/2011 12:00 AM GLYCOSYLATED HEMOGLOBIN TEST Reviewed 07/10/2011 12:00 AM ASSAY THYROID STIM HORMONE Reviewed 07/10/2011 12:00 AM COMPLETE CBC W/AUTO DIFF WBC Reviewed 07/10/2011 12:00 AM Immunization administration, Medicare flu Reviewed 09/13/2015 12:00 AM Kenalog, Per 10 Mg [facility]#0389-4244-42 Reviewed 09/13/2015 12:00 AM DRAIN/INJ JOINT/BURSA W/O US Reviewed 10/17/2015 12:00 AM COMPLETE CBC W/AUTO DIFF WBC Reviewed 10/17/2015 12:00 AM COMPREHEN METABOLIC PANEL Reviewed 10/17/2015 12:00 AM GLYCOSYLATED HEMOGLOBIN TEST Reviewed 10/17/2015 12:00 AM LIPID PANEL Reviewed 10/17/2015 12:00 AM MICROALBUMIN QUANTITATIVE Reviewed 10/24/2015 12:00 AM INFLUENZA A/B AG EIA Reviewed 10/10/2011 12:00 AM COMPREHEN METABOLIC PANEL Reviewed 10/10/2011 12:00 AM LIPID PANEL Reviewed 10/10/2011 12:00 AM GLYCOSYLATED HEMOGLOBIN TEST Reviewed 10/10/2011 12:00 AM COMPLETE CBC W/AUTO DIFF WBC Reviewed 10/17/2011 12:00 AM DRAIN/INJ JOINT/BURSA W/O US Reviewed 10/17/2011 12:00 AM Kenalog per 10Mg Im-[facility]#[address]-53(Sean) Reviewed 10/17/2011 12:00 AM DRAIN/INJ JOINT/BURSA W/O US Reviewed 10/17/2011 12:00 AM Kenalog per 10Mg Im-[facility]#[address]-11(Sean) Reviewed 05/03/2016 12:00 AM GLYCOSYLATED HEMOGLOBIN TEST Returned 05/03/2016 12:00 AM ASSAY THYROID STIM HORMONE Returned 05/03/2016 12:00 AM LIPID PANEL Returned 05/03/2016 12:00 AM ASSAY DIPROPYLACETIC ACD TOT Returned 11/14/2011 12:00 AM ASSAY OF BLOOD/URIC ACID Reviewed 01/09/2012 12:00 AM COMPREHEN METABOLIC PANEL Reviewed 01/09/2012 12:00 AM LIPID PANEL Reviewed 01/09/2012 12:00 AM GLYCOSYLATED HEMOGLOBIN TEST Reviewed 01/09/2012 12:00 AM COMPLETE CBC W/AUTO DIFF WBC Reviewed 01/16/2012 12:00 AM DRAIN/INJ JOINT/BURSA W/O US Reviewed 01/16/2012 12:00 AM Kenalog per 10Mg Im-[facility]#[address]-29(Sean) Reviewed 01/16/2012 12:00 AM DRAIN/INJ JOINT/BURSA W/O US Reviewed 01/16/2012 12:00 AM Kenalog per 10Mg Im-[facility]#[address]-12(Sean) Reviewed 01/16/2012 12:00 AM ASSAY OF BLOOD/URIC ACID Reviewed 08/10/2016 12:00 AM COMPLETE CBC W/AUTO DIFF WBC Returned 08/10/2016 12:00 AM COMPREHEN METABOLIC PANEL Returned 04/10/2012 12:00 AM COMPREHEN METABOLIC PANEL Reviewed 04/10/2012 12:00 AM LIPID PANEL Reviewed 04/10/2012 12:00 AM GLYCOSYLATED HEMOGLOBIN TEST Reviewed 04/10/2012 12:00 AM COMPLETE CBC W/AUTO DIFF WBC Reviewed 04/16/2012 12:00 AM DRAIN/INJ JOINT/BURSA W/O US Reviewed 04/16/2012 12:00 AM Kenalog per 10Mg Im-[facility]#[address]-36(Sean) Reviewed 04/16/2012 12:00 AM DRAIN/INJ JOINT/BURSA W/O US Reviewed 04/16/2012 12:00 AM Kenalog per 10Mg Im-[facility]#[address]-75(Sean) Reviewed 04/30/2012 12:00 AM COMPREHEN METABOLIC PANEL Reviewed 04/30/2012 12:00 AM LIPID PANEL Reviewed 04/30/2012 12:00 AM GLYCOSYLATED HEMOGLOBIN TEST Reviewed 04/30/2012 12:00 AM COMPLETE CBC W/AUTO DIFF WBC Reviewed 06/02/2012 12:00 AM COMPREHEN METABOLIC PANEL Reviewed 06/02/2012 12:00 AM LIPID PANEL Reviewed 06/02/2012 12:00 AM GLYCOSYLATED HEMOGLOBIN TEST Reviewed 06/02/2012 12:00 AM COMPLETE CBC W/AUTO DIFF WBC Reviewed 07/11/2012 12:00 AM COMPREHEN METABOLIC PANEL Reviewed 07/11/2012 12:00 AM LIPID PANEL Reviewed 07/11/2012 12:00 AM GLYCOSYLATED HEMOGLOBIN TEST Reviewed 07/11/2012 12:00 AM COMPLETE CBC W/AUTO DIFF WBC Reviewed 07/11/2012 12:00 AM Flu Injection 3 Years And Above [facility]# [address]-32 [facility] Reviewed 07/17/2012 12:00 AM ASSAY OF BLOOD/URIC ACID Reviewed 07/17/2012 12:00 AM DRAIN/INJ JOINT/BURSA W/O US Reviewed 07/17/2012 12:00 AM Kenalog per 10Mg Im-[facility]#[address]-49(Sean) Reviewed 08/14/2012 12:00 AM ASSAY OF BLOOD/URIC ACID Reviewed 10/13/2012 12:00 AM METABOLIC PANEL TOTAL CA Reviewed 10/13/2012 12:00 AM MYCOPLASMA ANTIBODY Reviewed 10/22/2012 12:00 AM ASSAY OF BLOOD/URIC ACID Reviewed 10/22/2012 12:00 AM DRAIN/INJ JOINT/BURSA W/O US Reviewed 10/22/2012 12:00 AM Kenalog per 10Mg Im-[facility]#[address]-42(Sean) Reviewed 01/11/2010 12:00 AM COMPREHEN METABOLIC PANEL Reviewed 01/11/2010 12:00 AM LIPID PANEL Reviewed 01/11/2010 12:00 AM GLYCOSYLATED HEMOGLOBIN TEST Reviewed 01/11/2010 12:00 AM ASSAY THYROID STIM HORMONE Reviewed 01/11/2010 12:00 AM COMPLETE CBC W/AUTO DIFF WBC Reviewed 12/19/2012 12:00 AM ASSAY OF BLOOD/URIC ACID Reviewed 01/05/2013 12:00 AM INFLUENZA A/B AG EIA Reviewed 04/13/2013 12:00 AM COMPREHEN METABOLIC PANEL Reviewed 04/13/2013 12:00 AM LIPID PANEL Reviewed 04/13/2013 12:00 AM GLYCOSYLATED HEMOGLOBIN TEST Reviewed 04/13/2013 12:00 AM COMPLETE CBC W/AUTO DIFF WBC Reviewed 02/18/2013 12:00 AM ASSAY OF BLOOD/URIC ACID Reviewed 02/18/2013 12:00 AM DRAIN/INJ JOINT/BURSA W/O US Reviewed 02/18/2013 12:00 AM Kenalog per 10Mg Im-[facility]#[address]-33(Sean) Reviewed 03/23/2013 12:[address] NECK SPINE W/O & W/DYE Reviewed 05/04/2013 12:00 AM Kenalog, Per 10 Mg [facility]#9192-6683-38 Reviewed 05/04/2013 12:00 AM DRAIN/INJ JOINT/BURSA W/O US Reviewed 05/12/2013 12:00 AM COMPREHEN METABOLIC PANEL Reviewed 05/12/2013 12:00 AM COMPLETE CBC W/AUTO DIFF WBC Reviewed 06/12/2013 12:00 AM METABOLIC PANEL TOTAL CA Reviewed 06/12/2013 12:00 AM URINALYSIS AUTO W/O SCOPE Reviewed 06/19/2013 12:00 AM THER/PROPH/DIAG INJ SC/IM Reviewed 06/19/2013 12:00 AM Decadron, Per 1 Mg [facility]# [address]-12 Reviewed 06/19/2013 12:00 AM Depo-Medrol, Per 80 Mg [facility]#0347-3110-89 Reviewed 02/10/2010 12:00 AM COMPREHEN METABOLIC PANEL Reviewed 02/10/2010 12:00 AM LIPID PANEL Reviewed 07/16/2013 12:00 AM Flu Injection 3 Years And Above [facility]# [address]-64 [facility] Reviewed 07/17/2013 12:00 AM BILATERAL Ankle Complete Min 3Views - MOB Reviewed 07/17/2013 12:00 AM BILATERAL Ankle Complete Min 3Views - MOB Reviewed 08/24/2013 12:00 AM COMPLETE CBC W/AUTO DIFF WBC Reviewed 08/24/2013 12:00 AM ASSAY OF BLOOD/URIC ACID Reviewed 08/24/2013 12:00 AM METABOLIC PANEL TOTAL CA Reviewed 08/31/2013 12:00 AM URINALYSIS AUTO W/SCOPE Reviewed 08/31/2013 12:00 AM COMPREHEN METABOLIC PANEL Reviewed 02/23/2010 12:00 AM THER INJECTION CARP TUNNEL Reviewed 02/23/2010 12:00 AM Kenalog Rl-[id number] [place] Reviewed 02/23/2010 12:00 AM MUSCLE TEST ONE LIMB Reviewed 02/23/2010 12:00 AM NERVE CONDUCTION, MOTOR Reviewed 02/23/2010 12:00 AM NERVE CONDUCTION, SENSORY Reviewed 10/09/2013 12:00 AM Drug Screen (Non-Medicare) Reviewed 11/04/2013 12:00 AM ELECTROCARDIOGRAM COMPLETE Reviewed 11/06/2013 12:00 AM EGD DIAGNOSTIC BRUSH WASH Reviewed 12/22/2013 12:00 AM GLYCOSYLATED HEMOGLOBIN TEST Reviewed 12/22/2013 12:00 AM LIPID PANEL Reviewed 12/22/2013 12:00 AM COMPLETE CBC W/AUTO DIFF WBC Reviewed 12/22/2013 12:00 AM COMPREHEN METABOLIC PANEL Reviewed 01/13/2014 12:00 AM Knee 3Views - MOB Reviewed 07/04/2010 12:00 AM COMPREHEN METABOLIC PANEL Reviewed 07/04/2010 12:00 AM ASSAY THYROID STIM HORMONE Reviewed 07/04/2010 12:00 AM COMPLETE CBC W/AUTO DIFF WBC Reviewed 07/04/2010 12:00 AM URINALYSIS NONAUTO W/SCOPE Reviewed 07/04/2010 12:00 AM ASSAY OF NATRIURETIC PEPTIDE Reviewed 07/20/2010 12:00 AM Immunization administration, Medicare flu Reviewed 07/20/2010 12:00 AM FLU VACCINE 3 YRS & > IM Reviewed 12/23/2009 12:00 AM COMPLETE CBC W/AUTO DIFF WBC Reviewed 03/23/2014 12:00 AM GLYCOSYLATED HEMOGLOBIN TEST Reviewed 03/23/2014 12:00 AM COMPLETE CBC AUTOMATED Reviewed 03/23/2014 12:00 AM COMPREHEN METABOLIC PANEL Reviewed 03/23/2014 12:00 AM LIPID PANEL Reviewed 03/25/2014 12:00 AM DRAIN/INJ JOINT/BURSA W/O US Reviewed 03/25/2014 12:00 AM Kenalog, Per 10 Mg [facility]#0417-9694-31 [facility] Medicare Reviewed 04/20/2014 12:00 AM CHEST X-RAY 2VW FRONTAL&LATL Reviewed 10/16/2010 12:00 AM X-RAY EXAM OF HAND Reviewed 10/16/2010 12:00 AM COMPREHEN METABOLIC PANEL Reviewed 10/16/2010 12:00 AM LIPID PANEL Reviewed 10/16/2010 12:00 AM GLYCOSYLATED HEMOGLOBIN TEST Reviewed 11/14/2010 12:00 AM THER/PROPH/DIAG INJ SC/IM Reviewed 11/14/2010 12:00 AM Bicillin CR (1.2) [facility]# [id number]--[facility] Reviewed 11/14/2010 12:00 AM Depo-Medrol 120 Mg Im [facility] Reviewed 06/15/2014 12:00 AM CHEST X-RAY 2VW FRONTAL&LATL Reviewed 11/29/2010 12:00 AM Blood Pressure Check-no charge Reviewed 07/30/2014 12:00 AM MRI JOINT UPR EXTREM W/DYE Reviewed 08/02/2014 12:00 AM COMPLETE CBC W/AUTO DIFF WBC Reviewed 08/02/2014 12:00 AM COMPREHEN METABOLIC PANEL Reviewed 08/02/2014 12:00 AM LIPID PANEL Reviewed 08/02/2014 12:00 AM GLYCOSYLATED HEMOGLOBIN TEST Reviewed 01/01/2011 12:00 AM THER/PROPH/DIAG INJ SC/IM Reviewed 01/01/2011 12:00 AM Depo-Medrol 120 Mg Im [place]LDO Reviewed 01/01/2011 12:00 AM COMPREHEN METABOLIC PANEL Reviewed 01/01/2011 12:00 AM LIPID PANEL Reviewed 01/01/2011 12:00 AM GLYCOSYLATED HEMOGLOBIN TEST Reviewed 01/01/2011 12:00 AM ASSAY THYROID STIM HORMONE Reviewed 01/01/2011 12:00 AM COMPLETE CBC W/AUTO DIFF WBC Reviewed 08/09/2014 12:00 AM CULTURE OTHR SPECIMN AEROBIC Reviewed 08/09/2014 12:00 AM FECES CULTURE AEROBIC BACT Reviewed 08/09/2014 12:00 AM BLOOD CULTURE FOR BACTERIA Reviewed 08/09/2014 12:00 AM BLOOD CULTURE FOR BACTERIA Reviewed 08/09/2014 12:00 AM URINE BACTERIA CULTURE Reviewed 08/09/2014 12:00 AM X-RAY EXAM OF ABDOMEN Reviewed 10/14/2014 12:00 AM THER/PROPH/DIAG INJ SC/IM Reviewed 10/14/2014 12:00 AM Bicillin CR, 1.2 million units [facility]# 17204-038-06 Reviewed 11/04/2014 12:00 AM COMPLETE CBC W/AUTO DIFF WBC Reviewed 11/04/2014 12:00 AM COMPREHEN METABOLIC PANEL Reviewed 11/04/2014 12:00 AM LIPID PANEL Reviewed 11/04/2014 12:00 AM GLYCOSYLATED HEMOGLOBIN TEST Reviewed 11/23/2014 12:00 AM X-RAY EXAM OF KNEE 1 OR 2 Reviewed 12/16/2014 12:00 AM MRI LUMBAR SPINE W/DYE Reviewed 01/27/2015 12:00 AM COMPLETE CBC W/AUTO DIFF WBC Reviewed 01/27/2015 12:00 AM COMPREHEN METABOLIC PANEL Reviewed 01/27/2015 12:00 AM GLYCOSYLATED HEMOGLOBIN TEST Reviewed 01/27/2015 12:00 AM LIPID PANEL Reviewed 01/27/2015 12:00 AM MICROALBUMIN QUANTITATIVE Reviewed 02/10/2015 12:00 AM INJ PARAVERT F JNT L/S 1 LEV Reviewed 02/10/2015 12:00 AM INJ PARAVERT F JNT L/S 2 LEV Reviewed 02/10/2015 12:00 AM INJ PARAVERT F JNT L/S 3 LEV Reviewed 02/10/2015 12:00 AM INJ PARAVERT F JNT L/S 1 LEV Reviewed 02/10/2015 12:00 AM INJ PARAVERT F JNT L/S 2 LEV Reviewed 02/10/2015 12:00 AM INJ PARAVERT F JNT L/S 3 LEV Reviewed 04/17/2011 12:00 AM Est & Document Need For Pmd Reviewed 05/09/2015 12:00 AM OFFICE/OUTPATIENT VISIT EST Reviewed 05/17/2011 12:00 AM Depo-Medrol 80 Mg Im/[facility] [place] [facility] [id number] Reviewed 05/17/2011 12:00 AM DRAIN/INJ JOINT/BURSA W/O US Reviewed 05/17/2011 12:00 AM Kenalog per 10Mg Im-[facility]#[address]-95(Sean) Reviewed Results Summary Data and Description Results 01/06/2010 10:34 AM WBC 2.7 MANUAL DIFF SEE BELOW SEGS 28 BANDS 5 LYMPHS 49 MONOS 13 EOS 4.0 %BASO 1.0 %ANISO 2+ RBC 5.11 HGB 15.30 g/dLHCT 42.10 %MCV 82.0 fLMCH 29.90 pgMCHC 36.30 g/dLRDW SD 43 RDW CV 14.50 %MPV 10.50 fLPLT 184 NRBC# 0.00 NRBC% 0.0 %NEUT 26.70 %%LYMP 48.0 %%MONO 18.70 %%EOS 4.80 %%BASO 1.80 %# NEUT 0.73 #LYMP 1.31 #MONO 0.51 #EOS 0.13 #BASO 0.05 01/11/2010 9:03 AM Colonoscopy-Women and Men over 50 Normal Dialated Eye Exam- Diabetic Declined Foot Exam-Diabetic Declined 01/12/2010 9:29 AM TRIGLYCERIDES 561.0 mg/dLCHOLESTEROL 237.0 mg/dLHDL 28.0 mg/ dLTOT CHOL/HDL 8.5 TRIG GLYCOHEMOGLOBIN A1C 6.80 %TSH 1.160 uIU/mLWBC 2.5 RBC 5.07 HGB 15.10 g/dLHCT 42.20 %MCV 83.0 fLMCH 29.80 pgMCHC 35.80 g/dLRDW SD 44 RDW CV 14.40 %MPV 11.0 fLPLT 180 NRBC# 0.00 NRBC% 0.0 %NEUT 45.40 %%LYMP 35.20 % %MONO 14.20 %%EOS 3.20 %%BASO 2.0 %#NEUT 1.12 #LYMP 0.87 #MONO 0.35 #EOS 0.08 # BASO 0.05 MANUAL DIFF NOT IND GLUCOSE 177.0 mg/dLSODIUM 139.0 mmol/LPOTASSIUM 4.10 mmol/LCHLORIDE 102.0 mmol/LCO2 26.0 mmol/LBUN 19.0 mg/dLCREATININE 1.20 mg/ dLSGOT/AST 26.0 IU/LSGPT/ALT 58.0 IU/LALK PHOS 68.0 IU/LTOTAL PROTEIN 7.60 g/ dLALBUMIN 4.60 g/dLTOTAL BILI 0.70 mg/dLCALCIUM 10.0 mg/dLAGE 44 GFR NonAA 65 GFR AA 79 eGFR >60 mL/min/1.73 m2eGFR AA* >60 WBC 2.5 RBC 5.07 HGB 15.10 g/ dLHCT 42.20 %MCV 83.0 fLMCH 29.80 pgMCHC 35.80 g/dLRDW SD 44 RDW CV 14.40 %MPV 11.0 fLPLT 180 NRBC# 0.00 NRBC% 0.0 %NEUT 45.40 %%LYMP 35.20 %%MONO 14.20 %%EOS 3.20 %%BASO 2.0 %#NEUT 1.12 #LYMP 0.87 #MONO 0.35 #EOS 0.08 #BASO 0.05 MANUAL DIFF NOT IND 02/08/2010 8:56 AM Cannabinoids (THC) NEGATIVE Phencyclidine (PCP) NEGATIVE Cocaine NEGATIVE Methamphetamine NEGATIVE Opiates NEGATIVE Amphetamine NEGATIVE Benzodiazepines NEGATIVE Tricyclic Antidepres NEGATIVE Methadone NEGATIVE Barbiturates NEGATIVE Oxycodone NEGATIVE Propoxyphene (PPX) NEGATIVE 02/23/2010 11:27 AM Amount used 20 MG Joint/Area CARPAL TUNNEL 07/04/2010 11:12 AM BNP 38.0 pg/mLGLUCOSE 121.0 mg/dLSODIUM 135.0 mmol/ LPOTASSIUM 3.60 mmol/LCHLORIDE 100.0 mmol/LCO2 25.0 mmol/LBUN 13.0 mg/ dLCREATININE 1.0 mg/dLSGOT/AST 12.0 IU/LSGPT/ALT 21.0 IU/LALK PHOS 70.0 IU/ LTOTAL PROTEIN 7.40 g/dLALBUMIN 3.80 g/dLTOTAL BILI 0.50 mg/dLCALCIUM 9.40 mg/ dLAGE 44 GFR NonAA 81 GFR AA 98 eGFR >60 mL/min/1.73 m2eGFR AA* >60 WBC 1.8 RBC 4.34 HGB 13.20 g/dLHCT 37.80 %MCV 87.0 fLMCH 30.40 pgMCHC 34.90 g/dLRDW SD 48 RDW CV 14.90 %MPV 10.20 fLPLT 213 NRBC# 0.00 NRBC% 0.0 %NEUT 28.40 %%LYMP 30.20 %%MONO 35.20 %%EOS 5.60 %%BASO 0.60 %#NEUT 0.51 #LYMP 0.54 #MONO 0.63 #EOS 0.10 #BASO 0.01 MANUAL DIFF SEE BELOW SEGS 14 BANDS 9 LYMPHS 39 MONOS 33 EOS 4.0 % BASO 1.0 %COLOR YELLOW APPEARANCE CLEAR SPEC GRAV 1.010 pH 6.0 PROTEIN 30 GLUCOSE NEGATIVE KETONE 15 BILIRUBIN NEGATIVE BLOOD NEGATIVE NITRITE NEGATIVE LEUK SCREEN NEGATIVE WBC/HPF RARE RBC/HPF NEGATIVE CASTS/LPF NEGATIVE CRYSTALS NEGATIVE MUCOUS THRDS NEGATIVE BACTERIA NEGATIVE EPITH CELLS NEGATIVE TRICHOMONAS NEGATIVE YEAST NEGATIVE CULT SET UP? NO 09/19/2010 5:33 PM Cannabinoids (THC) NEGATIVE Phencyclidine (PCP) NEGATIVE Cocaine NEGATIVE Methamphetamine NEGATIVE Opiates NON-NEGATIVE Amphetamine NEGATIVE Benzodiazepines NEGATIVE Tricyclic Antidepres NEGATIVE Methadone NEGATIVE Barbiturates NEGATIVE Oxycodone NEGATIVE Propoxyphene (PPX) NEGATIVE 01/08/2011 10:08 AM GLYCOHEMOGLOBIN A1C 7.0 %TRIGLYCERIDES 202.0 mg/ dLCHOLESTEROL 101.0 mg/dLHDL 25.0 mg/dLTOT CHOL/HDL 4.0 LDL (CALC) 36.0 mg/ dLTSH 1.140 uIU/mLGLUCOSE 130.0 mg/dLSODIUM 143.0 mmol/LPOTASSIUM 4.10 mmol/ LCHLORIDE 103.0 mmol/LCO2 26.0 mmol/LBUN 15.0 mg/dLCREATININE 1.10 mg/dLSGOT/ AST 13.0 IU/LSGPT/ALT 25.0 IU/LALK PHOS 96.0 IU/LTOTAL PROTEIN 7.40 g/dLALBUMIN 4.40 g/dLTOTAL BILI 0.30 mg/dLCALCIUM 10.0 mg/dLAGE 45 GFR NonAA 72 GFR AA 87 eGFR >60 mL/min/1.73 m2eGFR AA* >60 WBC 2.0 RBC 4.95 HGB 14.50 g/dLHCT 42.60 % MCV 86.0 fLMCH 29.30 pgMCHC 34.0 g/dLRDW SD 48 RDW CV 15.70 %MPV 10.80 fLPLT 227 NRBC# 0.00 NRBC% 0.0 %NEUT 25.60 %%LYMP 50.80 %%MONO 16.60 %%EOS 5.50 %% BASO 1.50 %#NEUT 0.51 #LYMP 1.01 #MONO 0.33 #EOS 0.11 #BASO 0.03 MANUAL DIFF SEE BELOW SEGS 25 LYMPHS 48 MONOS 21 EOS 6.0 % 08/17/2011 9:28 AM RA Factor < 10.0 URIC ACID 8.3 mg/dL 08/24/2011 2:30 PM TOTAL VOLUME 2250 URIC ACID UR 29.90 mg/dLURIC ACID UR 24H 673.0 mg/24 hr 10/02/2011 10:48 AM GLUCOSE 154.0 mg/dLSODIUM 139.0 mmol/LPOTASSIUM 4.40 mmol/ LCHLORIDE 101.0 mmol/LCO2 28.0 mmol/LBUN 24.0 mg/dLCREATININE 1.20 mg/dLSGOT/ AST 16.0 IU/LSGPT/ALT 29.0 IU/LALK PHOS 76.0 IU/LTOTAL PROTEIN 7.40 g/dLALBUMIN 4.70 g/dLTOTAL BILI 0.40 mg/dLCALCIUM 9.70 mg/dLAGE 46 GFR NonAA 65 GFR AA 79 eGFR >60 mL/min/1.73 m2eGFR AA* >60 TRIGLYCERIDES 264.0 mg/dLCHOLESTEROL 198.0 mg/dLHDL 33.0 mg/dLTOT CHOL/HDL 6.0 LDL (CALC) 112.0 mg/dLTSH 1.680 uIU/mLWBC 1.8 RBC 4.53 HGB 14.0 g/dLHCT 41.0 %MCV 91.0 fLMCH 30.90 pgMCHC 34.10 g/dLRDW SD 52 RDW CV 15.90 %MPV 10.60 fLPLT 211 NRBC# 0.00 NRBC% 0.0 %NEUT 12.70 %%LYMP 60.20 %%MONO 17.10 %%EOS 6.10 %%BASO 3.90 %#NEUT 0.23 #LYMP 1.09 #MONO 0.31 # EOS 0.11 #BASO 0.07 MANUAL DIFF SEE BELOW SEGS 13 BANDS 3 LYMPHS 56 MONOS 18 EOS 10.0 %GLYCOHEMOGLOBIN A1C 6.40 % 11/14/2011 9:18 AM URIC ACID 6.6 mg/dL 01/03/2012 12:30 PM WBC 1.6 RBC 4.34 HGB 14.10 g/dLHCT 40.20 %MCV 93.0 fLMCH 32.50 pgMCHC 35.10 g/dLRDW SD 52 RDW CV 15.10 %MPV 10.90 fLPLT 217 PLTS PLTS NRBC# 0.00 NRBC% 0.0 %NEUT 5.60 %%LYMP 60.60 %%MONO 24.40 %%EOS 5.60 %%BASO 3.80 %#NEUT 0.09 #LYMP 0.97 #MONO 0.39 #EOS 0.09 #BASO 0.06 MANUAL DIFF SEE BELOW SEGS 12 BANDS 1 LYMPHS 60 MONOS 25 EOS 2.0 %RBC MORPH ANISO 1+ GLUCOSE 142.0 mg/dLSODIUM 138.0 mmol/LPOTASSIUM 4.80 mmol/LCHLORIDE 106.0 mmol/LCO2 22.0 mmol/LBUN 20.0 mg/dLCREATININE 1.40 mg/dLSGOT/AST 13.0 IU/LSGPT/ALT 24.0 IU /LALK PHOS 84.0 IU/LTOTAL PROTEIN 7.70 g/dLALBUMIN 4.70 g/dLTOTAL BILI 0.40 mg/ dLCALCIUM 9.50 mg/dLAGE 46 GFR NonAA 54 GFR AA 65 eGFR 54 eGFR AA* >60 TRIGLYCERIDES 288.0 mg/dLCHOLESTEROL 141.0 mg/dLHDL 21.0 mg/dLTOT CHOL/HDL 6.7 LDL (CALC) 62.0 mg/dLGLYCOHEMOGLOBIN A1C 5.30 % 04/03/2012 10:30 AM GLUCOSE 138.0 mg/dLSODIUM 140.0 mmol/LPOTASSIUM 4.30 mmol/ LCHLORIDE 104.0 mmol/LCO2 22.0 mmol/LBUN 21.0 mg/dLCREATININE 1.30 mg/dLSGOT/ AST 14.0 IU/LSGPT/ALT 16.0 IU/LALK PHOS 71.0 IU/LTOTAL PROTEIN 7.40 g/dLALBUMIN 4.40 g/dLTOTAL BILI 0.30 mg/dLCALCIUM 9.80 mg/dLAGE 46 GFR NonAA 59 GFR AA 72 eGFR 59 eGFR AA* 60 TRIGLYCERIDES 424.0 mg/dLCHOLESTEROL 167.0 mg/dLHDL 26.0 mg/ dLTOT CHOL/HDL 6.4 LDL (CALC) INVALID MG/DL TRIG WBC 1.6 RBC 4.16 HGB 13.30 g/ dLHCT 38.90 %MCV 94.0 fLMCH 32.0 pgMCHC 34.20 g/dLRDW SD 48 RDW CV 14.20 %MPV 10.50 fLPLT 186 NRBC# 0.00 NRBC% 0.0 %NEUT 16.20 %%LYMP 56.90 %%MONO 17.50 %% EOS 5.60 %%BASO 3.80 %#NEUT 0.26 #LYMP 0.91 #MONO 0.28 #EOS 0.09 #BASO 0.06 MANUAL DIFF SEE BELOW SEGS 15 BANDS 2 LYMPHS 57 MONOS 20 EOS 6.0 % GLYCOHEMOGLOBIN A1C 5.40 % 06/27/2012 12:25 PM GLUCOSE 161.0 mg/dLSODIUM 138.0 mmol/LPOTASSIUM 4.20 mmol/ LCHLORIDE 102.0 mmol/LCO2 23.0 mmol/LBUN 18.0 mg/dLCREATININE 1.20 mg/dLSGOT/ AST 9.0 IU/LSGPT/ALT 14.0 IU/LALK PHOS 69.0 IU/LTOTAL PROTEIN 8.0 g/dLALBUMIN 4.50 g/dLTOTAL BILI 0.40 mg/dLCALCIUM 10.20 mg/dLAGE 46 GFR NonAA 65 GFR AA 79 eGFR 60 eGFR AA* 60 TRIGLYCERIDES 595.0 mg/dLCHOLESTEROL 222.0 mg/dLHDL 27.0 mg/ dLTOT CHOL/HDL 8.2 LDL (CALC) INVALID MG/DLWBC 1.7 RBC 4.10 HGB 13.0 g/dLHCT 38.50 %MCV 94.0 fLMCH 31.70 pgMCHC 33.80 g/dLRDW SD 53 RDW CV 15.30 %MPV 10.50 fLPLT 206 NRBC# 0.00 NRBC% 0.0 %NEUT 15.60 %%LYMP 54.90 %%MONO 23.10 %%EOS 3.50 %%BASO 2.90 %#NEUT 0.27 #LYMP 0.95 #MONO 0.40 #EOS 0.06 #BASO 0.05 MANUAL DIFF SEE BELOW SEGS 11 BANDS 7 LYMPHS 58 MONOS 22 EOS 2.0 %GLYCOHEMOGLOBIN A1C 5.60 % 07/17/2012 9:42 AM URIC ACID 6.5 mg/dL 09/01/2012 11:10 AM GLUCOSE 122.0 mg/dLSODIUM 138.0 mmol/LPOTASSIUM 4.20 mmol/ LCHLORIDE 105.0 mmol/LCO2 25.0 mmol/LBUN 28.0 mg/dLCREATININE 1.40 mg/dLSGOT/ AST 11.0 IU/LSGPT/ALT 17.0 IU/LALK PHOS 35.0 IU/LTOTAL PROTEIN 7.40 g/dLALBUMIN 4.20 g/dLTOTAL BILI 0.30 mg/dLCALCIUM 9.60 mg/dLAGE 47 GFR NonAA 54 GFR AA 65 eGFR 54 eGFR AA* 60 TRIGLYCERIDES 760.0 mg/dLCHOLESTEROL 246.0 mg/dLHDL 12.0 mg/ dLTOT CHOL/HDL 20.5 LDL (CALC) INVALID MG/DL TRIG WBC 1.8 RBC 3.72 HGB 11.60 g/ dLHCT 35.60 %MCV 96.0 fLMCH 31.20 pgMCHC 32.60 g/dLRDW SD 51 RDW CV 14.70 %MPV 10.30 fLPLT 224 NRBC# 0.00 NRBC% 0.0 %NEUT 17.20 %%LYMP 58.90 %%MONO 16.70 %% EOS 4.40 %%BASO 2.80 %#NEUT 0.31 #LYMP 1.06 #MONO 0.30 #EOS 0.08 #BASO 0.05 MANUAL DIFF SEE BELOW SEGS 6 BANDS 8 LYMPHS 53 MONOS 27 EOS 6.0 % GLYCOHEMOGLOBIN A1C 5.90 % 10/13/2012 10:12 AM GLUCOSE 125.0 mg/dLSODIUM 142.0 mmol/LPOTASSIUM 4.60 mmol/ LCHLORIDE 107.0 mmol/LCO2 25.0 mmol/LBUN 19.0 mg/dLCREATININE 1.30 mg/dLCALCIUM 9.40 mg/dLAGE 47 GFR NonAA 59 GFR AA 72 eGFR 59 eGFR AA* 60 01/05/2013 11:28 AM INFLUENZA A & B INFLUENZA A POSITIVE 04/02/2013 9:00 AM TRIGLYCERIDES 325.0 mg/dLCHOLESTEROL 162.0 mg/dLHDL 26.0 mg/ dLTOT CHOL/HDL 6.2 LDL (CALC) 71.0 mg/dLGLUCOSE 131.0 mg/dLSODIUM 142.0 mmol/ LPOTASSIUM 3.80 mmol/LCHLORIDE 106.0 mmol/LCO2 23.0 mmol/LBUN 12.0 mg/ dLCREATININE 1.20 mg/dLSGOT/AST 11.0 IU/LSGPT/ALT 11.0 IU/LALK PHOS 65.0 IU/ LTOTAL PROTEIN 6.90 g/dLALBUMIN 3.80 g/dLTOTAL BILI 0.20 mg/dLCALCIUM 9.20 mg/ dLAGE 47 GFR NonAA 65 GFR AA 79 eGFR 60 eGFR AA* 60 WBC 1.5 RBC 3.52 HGB 11.0 g/ dLHCT 33.10 %MCV 94.0 fLMCH 31.30 pgMCHC 33.20 g/dLRDW SD 53 RDW CV 15.90 %MPV 10.30 fLPLT 208 NRBC# 0.00 NRBC% 0.0 %NEUT 10.20 %%LYMP 69.40 %%MONO 13.60 %% EOS 4.10 %%BASO 2.70 %#NEUT 0.15 #LYMP 1.02 #MONO 0.20 #EOS 0.06 #BASO 0.04 MANUAL DIFF SEE BELOW SEGS 15 BANDS 3 LYMPHS 70 MONOS 8 EOS 4.0 % GLYCOHEMOGLOBIN A1C 5.40 % 05/13/2013 12:35 PM WBC 1.6 RBC 3.87 HGB 11.70 g/dLHCT 35.30 %MCV 91.0 fLMCH 30.20 pgMCHC 33.10 g/dLRDW SD 51 RDW CV 15.60 %MPV 10.30 fLPLT 282 NRBC# 0.00 NRBC% 0.0 %NEUT 25.0 %%LYMP 52.80 %%MONO 16.0 %%EOS 3.10 %%BASO 3.10 %#NEUT 0.41 #LYMP 0.86 #MONO 0.26 #EOS 0.05 #BASO 0.05 MANUAL DIFF SEE BELOW SEGS 26 BANDS 57 LYMPHS 14 MONOS 3 GLUCOSE 125.0 mg/dLSODIUM 139.0 mmol/LPOTASSIUM 4.20 mmol/LCHLORIDE 102.0 mmol/LCO2 25.0 mmol/LBUN 15.0 mg/dLCREATININE 1.20 mg/ dLSGOT/AST 9.0 IU/LSGPT/ALT 15.0 IU/LALK PHOS 61.0 IU/LTOTAL PROTEIN 7.20 g/ dLALBUMIN 3.80 g/dLTOTAL BILI 0.30 mg/dLCALCIUM 9.60 mg/dLAGE 47 GFR NonAA 65 GFR AA 79 eGFR 60 eGFR AA* 60 06/12/2013 11:00 AM GLUCOSE 138.0 mg/dLSODIUM 142.0 mmol/LPOTASSIUM 4.30 mmol/ LCHLORIDE 100.0 mmol/LCO2 28.0 mmol/LBUN 16.0 mg/dLCREATININE 1.30 mg/dLCALCIUM 9.80 mg/dLAGE 47 GFR NonAA 59 GFR AA 72 eGFR 59 eGFR AA* 60 08/31/2013 11:40 AM GLUCOSE 144.0 mg/dLSODIUM 140.0 mmol/LPOTASSIUM 4.20 mmol/ LCHLORIDE 101.0 mmol/LCO2 28.0 mmol/LBUN 15.0 mg/dLCREATININE 1.20 mg/dLSGOT/ AST 8.0 IU/LSGPT/ALT 14.0 IU/LALK PHOS 87.0 IU/LTOTAL PROTEIN 7.0 g/dLALBUMIN 4.50 g/dLTOTAL BILI 0.30 mg/dLCALCIUM 9.80 mg/dLAGE 48 GFR NonAA 64 GFR AA 78 eGFR >60 mL/min/1.73 m2eGFR AA* >60 COLOR YELLOW APPEARANCE CLEAR SPEC GRAV >= 1.030 pH 6.0 PROTEIN NEGATIVE GLUCOSE NEGATIVE KETONE TRACE BILIRUBIN NEGATIVE BLOOD NEGATIVE NITRITE NEGATIVE LEUK SCREEN NEGATIVE WBC/HPF NEGATIVE RBC/HPF NEGATIVE CASTS/LPF NEGATIVE CRYSTALS NEGATIVE MUCOUS THRDS FEW BACTERIA NEGATIVE EPITH CELLS NEGATIVE TRICHOMONAS NEGATIVE YEAST NEGATIVE CULT SET UP? NO 09/29/2013 10:48 AM URIC ACID 4.5 mg/dL 11/06/2013 9:58 AM GLUCOSE 182.0 mg/dLSODIUM 138.0 mmol/LPOTASSIUM 4.10 mmol/ LCHLORIDE 101.0 mmol/LCO2 24.0 mmol/LBUN 12.0 mg/dLCREATININE 1.20 mg/dLSGOT/ AST 15.0 IU/LSGPT/ALT 22.0 IU/LALK PHOS 117.0 IU/LTOTAL PROTEIN 7.70 g/ dLALBUMIN 4.70 g/dLTOTAL BILI 0.50 mg/dLCALCIUM 10.50 mg/dLAGE 48 GFR NonAA 64 GFR AA 78 eGFR >60 mL/min/1.73 m2eGFR AA* >60 WBC 2.2 RBC 4.72 HGB 15.10 g/ dLHCT 42.60 %MCV 90.0 fLMCH 32.0 pgMCHC 35.40 g/dLRDW SD 47 RDW CV 14.30 %MPV 11.30 fLPLT 200 NRBC# 0.00 NRBC% 0.0 %NEUT 20.30 %%LYMP 54.80 %%MONO 18.0 %%EOS 4.60 %%BASO 2.30 %#NEUT 0.44 #LYMP 1.19 #MONO 0.39 #EOS 0.10 #BASO 0.05 MANUAL DIFF SEE BELOW SEGS 11 BANDS 7 LYMPHS 61 MONOS 17 EOS 4.0 % 12/22/2013 9:00 AM GLUCOSE 146.0 mg/dLSODIUM 140.0 mmol/LPOTASSIUM 4.20 mmol/ LCHLORIDE 105.0 mmol/LCO2 27.0 mmol/LBUN 14.0 mg/dLCREATININE 1.10 mg/dLSGOT/ AST 14.0 IU/LSGPT/ALT 18.0 IU/LALK PHOS 78.0 IU/LTOTAL PROTEIN 6.80 g/dLALBUMIN 4.30 g/dLTOTAL BILI 0.40 mg/dLCALCIUM 9.50 mg/dLAGE 48 GFR NonAA 71 GFR AA 86 eGFR >60 mL/min/1.73 m2eGFR AA* >60 TRIGLYCERIDES 380.0 mg/dLCHOLESTEROL 206.0 mg/dLHDL 27.0 mg/dLTOT CHOL/HDL 7.6 LDL (CALC) 103.0 mg/dLWBC 2.0 RBC 4.73 HGB 14.80 g/dLHCT 42.30 %MCV 89.0 fLMCH 31.30 pgMCHC 35.0 g/dLRDW SD 47 RDW CV 14.50 %MPV 11.10 fLPLT 188 NRBC# 0.00 NRBC% 0.0 %NEUT 11.0 %%LYMP 62.50 %%MONO 15.50 %%EOS 9.50 %%BASO 1.50 %#NEUT 0.22 #LYMP 1.25 #MONO 0.31 #EOS 0.19 #BASO 0.03 MANUAL DIFF SEE BELOW SEGS 16 LYMPHS 58 MONOS 17 EOS 9.0 %HGB A1C 5.90 % Est Avg Glucose 122.6 mg/dL 03/23/2014 9:30 AM WBC 2.2 RBC 4.65 HGB 14.90 g/dLHCT 43.0 %MCV 93.0 fLMCH 32.0 pgMCHC 34.70 g/dLRDW SD 50 RDW CV 15.0 %MPV 11.20 fLPLT 190 NRBC# 0.00 NRBC % 0.0 TRIGLYCERIDES 518.0 mg/dLCHOLESTEROL 220.0 mg/dLHDL 27.0 mg/dLTOT CHOL/ HDL 8.1 LDL (CALC) INVALID MG/DLGLUCOSE 92.0 mg/dLSODIUM 142.0 mmol/LPOTASSIUM 3.90 mmol/LCHLORIDE 103.0 mmol/LCO2 24.0 mmol/LBUN 15.0 mg/dLCREATININE 1.10 mg/ dLSGOT/AST 14.0 IU/LSGPT/ALT 16.0 IU/LALK PHOS 65.0 IU/LTOTAL PROTEIN 7.0 g/ dLALBUMIN 4.0 g/dLTOTAL BILI 0.20 mg/dLCALCIUM 9.0 mg/dLAGE 48 GFR NonAA 71 GFR AA 86 eGFR 60 eGFR AA* 60 HGB A1C 6.50 %Est Avg Glucose 139.9 mg/dL 03/31/2014 12:18 PM VALPROIC ACID 38.0 ug/mL 04/19/2014 8:32 AM WBC 3.0 RBC 4.40 HGB 13.50 g/dLHCT 40.0 %MCV 91.0 fLMCH 30.70 pgMCHC 33.80 g/dLRDW SD 52 RDW CV 15.80 %MPV 10.50 fLPLT 213 NRBC# 0.00 NRBC% 0.0 %NEUT 30.10 %%LYMP 48.0 %%MONO 7.30 %%EOS 13.30 %%BASO 1.30 %#NEUT 0.90 #LYMP 1.44 #MONO 0.22 #EOS 0.40 #BASO 0.04 MANUAL DIFF NOT IND GLUCOSE 96.0 mg/dLSODIUM 142.0 mmol/LPOTASSIUM 4.30 mmol/LCHLORIDE 101.0 mmol/LCO2 29.0 mmol/LBUN 9.0 mg/dLCREATININE 1.0 mg/dLSGOT/AST 14.0 IU/LSGPT/ALT 27.0 IU/LALK PHOS 81.0 IU/LTOTAL PROTEIN 6.50 g/dLALBUMIN 3.70 g/dLTOTAL BILI 0.60 mg/ dLCALCIUM 10.0 mg/dLAGE 48 GFR NonAA 79 GFR AA 96 eGFR 60 eGFR AA* 60 05/05/2014 7:40 AM WBC 3.4 RBC 4.44 HGB 13.40 g/dLHCT 38.60 %MCV 87.0 fLMCH 30.20 pgMCHC 34.70 g/dLRDW SD 46 RDW CV 14.60 %MPV 10.70 fLPLT 123 NRBC# 0.00 NRBC% 0.0 %NEUT 35.0 %%LYMP 48.20 %%MONO 7.10 %%EOS 8.50 %%BASO 1.20 %#NEUT 1.19 #LYMP 1.64 #MONO 0.24 #EOS 0.29 #BASO 0.04 SEGS 37 BANDS 4 LYMPHS 47 MONOS 7 EOS 4.0 %METAS 1 08/02/2014 9:08 AM GLUCOSE 109.0 mg/dLSODIUM 141.0 mmol/LPOTASSIUM 4.0 mmol/ LCHLORIDE 104.0 mmol/LCO2 23.0 mmol/LBUN 12.0 mg/dLCREATININE 1.20 mg/dLSGOT/ AST 12.0 IU/LSGPT/ALT 16.0 IU/LALK PHOS 106.0 IU/LTOTAL PROTEIN 6.80 g/ dLALBUMIN 4.30 g/dLTOTAL BILI 0.60 mg/dLCALCIUM 9.90 mg/dLAGE 49 GFR NonAA 64 GFR AA 78 eGFR 60 eGFR AA* 60 TRIGLYCERIDES 388.0 mg/dLCHOLESTEROL 178.0 mg/ dLHDL 26.0 mg/dLTOT CHOL/HDL 6.8 LDL (CALC) 74.0 mg/dLWBC 2.5 RBC 4.68 HGB 14.90 g/dLHCT 41.90 %MCV 90.0 fLMCH 31.80 pgMCHC 35.60 g/dLRDW SD 48 RDW CV 15.0 %MPV 11.60 fLPLT 174 NRBC# 0.00 NRBC% 0.0 %NEUT 7.30 %%LYMP 68.70 %%MONO 16.30 %%EOS 5.30 %%BASO 2.40 %#NEUT 0.18 #LYMP 1.69 #MONO 0.40 #EOS 0.13 #BASO 0.06 MANUAL DIFF SEE BELOW SEGS 4 LYMPHS 78 MONOS 9 EOS 9.0 %HGB A1C 6.20 %Est Avg Glucose 131.2 mg/dL 11/04/2014 8:35 AM WBC 4.6 RBC 4.65 HGB 14.70 g/dLHCT 42.50 %MCV 91.0 fLMCH 31.60 pgMCHC 34.60 g/dLRDW SD 50 RDW CV 15.0 %MPV 12.10 fLPLT 156 NRBC# 0.00 NRBC% 0.0 %NEUT 63.20 %%LYMP 24.90 %%MONO 6.60 %%EOS 4.40 %%BASO 0.90 %#NEUT 2.89 #LYMP 1.14 #MONO 0.30 #EOS 0.20 #BASO 0.04 MANUAL DIFF NOT IND HGB A1C 5.70 %Est Avg Glucose 116.9 mg/dLTRIGLYCERIDES 308.0 mg/dLCHOLESTEROL 145.0 mg/ dLHDL 21.0 mg/dLTOT CHOL/HDL 6.9 LDL (CALC) 62.0 mg/dLGLUCOSE 113.0 mg/dLSODIUM 139.0 mmol/LPOTASSIUM 4.20 mmol/LCHLORIDE 105.0 mmol/LCO2 23.0 mmol/LBUN 8.0 mg/ dLCREATININE 1.0 mg/dLSGOT/AST 12.0 IU/LSGPT/ALT 15.0 IU/LALK PHOS 111.0 IU/ LTOTAL PROTEIN 6.90 g/dLALBUMIN 4.40 g/dLTOTAL BILI 0.30 mg/dLCALCIUM 9.40 mg/ dLAGE 49 GFR NonAA 79 GFR AA 96 eGFR >60 mL/min/1.73 m2eGFR AA* >60 01/27/2015 8:15 AM WBC 4.8 RBC 4.75 HGB 15.10 g/dLHCT 44.20 %MCV 93.0 fLMCH 31.80 pgMCHC 34.20 g/dLRDW SD 51 RDW CV 14.90 %MPV 11.0 fLPLT 144 NRBC# 0.00 NRBC% 0.0 %NEUT 58.0 %%LYMP 29.10 %%MONO 7.10 %%EOS 5.0 %%BASO 0.80 %#NEUT 2.77 #LYMP 1.39 #MONO 0.34 #EOS 0.24 #BASO 0.04 MANUAL DIFF NOT IND HGB A1C 6.0 %Est Avg Glucose 125.5 mg/dLMICROALBUMIN UR <0.5 MG/DLGLUCOSE 103.0 mg/dLSODIUM 142.0 mmol/LPOTASSIUM 3.90 mmol/LCHLORIDE 105.0 mmol/LCO2 25.0 mmol/LBUN 14.0 mg /dLCREATININE 1.10 mg/dLSGOT/AST 10.0 IU/LSGPT/ALT 14.0 IU/LALK PHOS 75.0 IU/ LTOTAL PROTEIN 6.90 g/dLALBUMIN 4.40 g/dLTOTAL BILI 0.40 mg/dLCALCIUM 9.40 mg/ dLAGE 49 GFR NonAA 71 GFR AA 86 eGFR >60 mL/min/1.73 m2eGFR AA* >60 TRIGLYCERIDES 379.0 mg/dLCHOLESTEROL 148.0 mg/dLHDL 21.0 mg/dLTOT CHOL/HDL 7.0 LDL (CALC) 51.0 mg/dL 03/22/2015 2:01 PM Treatment/Therapy Right L3, L4 and L5 RFA Response to treatment Excellent 04/28/2015 9:40 AM WBC 4.7 RBC 4.87 HGB 15.60 g/dLHCT 45.60 %MCV 94.0 fLMCH 32.0 pgMCHC 34.20 g/dLRDW SD 50 RDW CV 14.70 %MPV 11.40 fLPLT 176 NRBC# 0.00 NRBC% 0.0 %NEUT 52.60 %%LYMP 34.0 %%MONO 6.90 %%EOS 5.40 %%BASO 1.10 %#NEUT 2.46 #LYMP 1.59 #MONO 0.32 #EOS 0.25 #BASO 0.05 MANUAL DIFF NOT IND GLUCOSE 80.0 mg/dLSODIUM 144.0 mmol/LPOTASSIUM 4.20 mmol/LCHLORIDE 106.0 mmol/LCO2 25.0 mmol/LBUN 9.0 mg/dLCREATININE 1.0 mg/dLSGOT/AST 13.0 IU/LSGPT/ALT 26.0 IU/LALK PHOS 79.0 IU/LTOTAL PROTEIN 6.40 g/dLALBUMIN 4.20 g/dLTOTAL BILI 0.50 mg/ dLCALCIUM 9.30 mg/dLAGE 49 GFR NonAA 79 GFR AA 96 eGFR >60 mL/min/1.73 m2eGFR AA * >60 TRIGLYCERIDES 290.0 mg/dLCHOLESTEROL 133.0 mg/dLHDL 21.0 mg/dLTOT CHOL/ HDL 6.3 LDL (CALC) 54.0 mg/dLHemoglobin A1c 5.80 %Estim. Avg Glu (eAG) 120 mg/dL 07/24/2015 10:43 AM WBC 9.3 RBC 4.72 HGB 15.40 g/dLHCT 44.60 %MCV 95.0 fLMCH 32.60 pgMCHC 34.50 g/dLRDW SD 51 RDW CV 14.60 %MPV 10.90 fLPLT 173 NRBC# 0.00 NRBC% 0.0 %NEUT 74.70 %%LYMP 17.10 %%MONO 4.80 %%EOS 2.80 %%BASO 0.60 %#NEUT 6.96 #LYMP 1.59 #MONO 0.45 #EOS 0.26 #BASO 0.06 MANUAL DIFF NOT IND 07/25/2015 8:38 AM GLUCOSE 121.0 mg/dLSODIUM 141.0 mmol/LPOTASSIUM 4.30 mmol/ LCHLORIDE 104.0 mmol/LCO2 27.0 mmol/LBUN 14.0 mg/dLCREATININE 1.0 mg/dLSGOT/AST 12.0 IU/LSGPT/ALT 17.0 IU/LALK PHOS 87.0 IU/LTOTAL PROTEIN 6.50 g/dLALBUMIN 4.30 g/dLTOTAL BILI 0.30 mg/dLCALCIUM 9.30 mg/dLAGE 50 GFR NonAA 79 GFR AA 96 eGFR >60 mL/min/1.73meGFR AA* >60 TRIGLYCERIDES 240.0 mg/dLCHOLESTEROL 148.0 mg/dLHDL 22.0 mg/dLTOT CHOL/HDL 6.7 LDL (CALC) 78.0 mg/dLWBC 4.6 RBC 4.72 HGB 15.50 g/dLHCT 44.60 %MCV 95.0 fLMCH 32.80 pgMCHC 34.80 g/dLRDW SD 50 RDW CV 14.60 %MPV 11.0 fLPLT 162 NRBC# 0.00 NRBC% 0.0 %NEUT 51.90 %%LYMP 32.80 %%MONO 8.40 %%EOS 5.80 %%BASO 1.10 %#NEUT 2.41 #LYMP 1.52 #MONO 0.39 #EOS 0.27 #BASO 0.05 MANUAL DIFF NOT IND Hemoglobin A1c 5.40 %Estim. Avg Glu (eAG) 108 07/28/2015 12:00 AM PQRS 14 Influenza immunization Yes 07/31/2015 9:10 AM WBC 7.3 RBC 4.57 HGB 15.0 g/dLHCT 43.20 %MCV 95.0 fLMCH 32.80 pgMCHC 34.70 g/dLRDW SD 50 RDW CV 14.40 %MPV 10.70 fLPLT 150 NRBC# 0.00 NRBC% 0.0 %NEUT 70.50 %%LYMP 19.50 %%MONO 5.30 %%EOS 4.20 %%BASO 0.50 %#NEUT 5.14 #LYMP 1.42 #MONO 0.39 #EOS 0.31 #BASO 0.04 SEGS 71 BANDS 5 LYMPHS 16 MONOS 5 EOS 3.0 % 08/07/2015 9:30 AM WBC 5.8 RBC 4.57 HGB 14.90 g/dLHCT 43.20 %MCV 95.0 fLMCH 32.60 pgMCHC 34.50 g/dLRDW SD 50 RDW CV 14.40 %MPV 11.10 fLPLT 140 NRBC# 0.00 NRBC% 0.0 %NEUT 65.30 %%LYMP 22.80 %%MONO 5.90 %%EOS 5.0 %%BASO 1.0 %#NEUT 3.78 #LYMP 1.32 #MONO 0.34 #EOS 0.29 #BASO 0.06 SEGS 65 BANDS 2 LYMPHS 24 MONOS 4 EOS 5.0 % 08/14/2015 10:45 AM WBC 5.6 RBC 4.83 HGB 15.90 g/dLHCT 46.20 %MCV 96.0 fLMCH 32.90 pgMCHC 34.40 g/dLRDW SD 51 RDW CV 14.50 %MPV 11.40 fLPLT 162 NRBC# 0.00 NRBC% 0.0 %NEUT 59.30 %%LYMP 27.10 %%MONO 7.20 %%EOS 5.0 %%BASO 1.40 %#NEUT 3.31 #LYMP 1.51 #MONO 0.40 #EOS 0.28 #BASO 0.08 SEGS 45 BANDS 10 LYMPHS 33 MONOS 7 EOS 4.0 %BASO 1.0 % 08/21/2015 10:30 AM WBC 5.4 RBC 4.57 HGB 15.0 g/dLHCT 43.40 %MCV 95.0 fLMCH 32.80 pgMCHC 34.60 g/dLRDW SD 50 RDW CV 14.20 %MPV 11.10 fLPLT 146 NRBC# 0.00 NRBC% 0.0 %NEUT 58.90 %%LYMP 27.50 %%MONO 6.60 %%EOS 5.90 %%BASO 1.10 %#NEUT 3.19 #LYMP 1.49 #MONO 0.36 #EOS 0.32 #BASO 0.06 MANUAL DIFF NOT IND 08/28/2015 9:55 AM WBC 5.8 RBC 4.69 HGB 15.30 g/dLHCT 44.20 %MCV 94.0 fLMCH 32.60 pgMCHC 34.60 g/dLRDW SD 49 RDW CV 14.20 %MPV 11.30 fLPLT 158 NRBC# 0.00 NRBC% 0.0 %NEUT 63.0 %%LYMP 24.90 %%MONO 6.50 %%EOS 4.60 %%BASO 1.0 %#NEUT 3.66 #LYMP 1.45 #MONO 0.38 #EOS 0.27 #BASO 0.06 SEGS 52 BANDS 6 LYMPHS 31 MONOS 7 EOS 3.0 %BASO 1.0 % 09/04/2015 10:44 AM WBC 4.4 RBC 4.79 HGB 15.60 g/dLHCT 45.70 %MCV 95.0 fLMCH 32.60 pgMCHC 34.10 g/dLRDW SD 48 RDW CV 13.80 %MPV 11.10 fLPLT 144 NRBC# 0.00 NRBC% 0.0 %NEUT 48.20 %%LYMP 37.30 %%MONO 7.20 %%EOS 5.90 %%BASO 1.40 %#NEUT 2.13 #LYMP 1.65 #MONO 0.32 #EOS 0.26 #BASO 0.06 SEGS 52 LYMPHS 35 MONOS 6 EOS 3.0 %ATYP LYMPHS 4 09/11/2015 10:30 AM WBC 4.4 RBC 4.72 HGB 15.20 g/dLHCT 45.10 %MCV 96.0 fLMCH 32.20 pgMCHC 33.70 g/dLRDW SD 50 RDW CV 14.10 %MPV 11.90 fLPLT 168 NRBC# 0.00 NRBC% 0.0 %NEUT 42.90 %%LYMP 42.40 %%MONO 8.60 %%EOS 4.50 %%BASO 1.60 %#NEUT 1.90 #LYMP 1.88 #MONO 0.38 #EOS 0.20 #BASO 0.07 SEGS 39 BANDS 3 LYMPHS 41 MONOS 10 EOS 4.0 %BASO 3.0 % 09/17/2015 11:55 AM WBC 6.9 RBC 5.08 HGB 16.60 g/dLHCT 48.20 %MCV 95.0 fLMCH 32.70 pgMCHC 34.40 g/dLRDW SD 50 RDW CV 14.30 %MPV 11.50 fLPLT 187 NRBC# 0.00 NRBC% 0.0 %NEUT 67.20 %%LYMP 23.10 %%MONO 6.10 %%EOS 2.90 %%BASO 0.70 %#NEUT 4.63 #LYMP 1.59 #MONO 0.42 #EOS 0.20 #BASO 0.05 SEGS 57 BANDS 5 LYMPHS 31 MONOS 5 EOS 2.0 %ANISO 1+ 09/25/2015 9:45 AM WBC 4.7 RBC 4.78 HGB 15.60 g/dLHCT 45.60 %MCV 95.0 fLMCH 32.60 pgMCHC 34.20 g/dLRDW SD 49 RDW CV 14.10 %MPV 11.60 fLPLT 191 NRBC# 0.00 NRBC% 0.0 %NEUT 48.80 %%LYMP 35.60 %%MONO 9.0 %%EOS 4.70 %%BASO 1.90 %#NEUT 2.27 #LYMP 1.66 #MONO 0.42 #EOS 0.22 #BASO 0.09 SEGS 53 BANDS 3 LYMPHS 31 MONOS 8 EOS 4.0 %BASO 1.0 % 10/01/2015 8:30 AM WBC 8.2 RBC 5.01 HGB 16.20 g/dLHCT 47.40 %MCV 95.0 fLMCH 32.30 pgMCHC 34.20 g/dLRDW SD 48 RDW CV 14.0 %MPV 10.60 fLPLT 172 NRBC# 0.00 NRBC% 0.0 %NEUT 65.40 %%LYMP 25.60 %%MONO 5.60 %%EOS 2.80 %%BASO 0.60 %#NEUT 5.32 #LYMP 2.09 #MONO 0.46 #EOS 0.23 #BASO 0.05 MANUAL DIFF SEE BELOW SEGS 69 LYMPHS 27 MONOS 3 EOS 1.0 % 10/09/2015 11:05 AM WBC 9.1 RBC 4.71 HGB 15.10 g/dLHCT 44.50 %MCV 95.0 fLMCH 32.10 pgMCHC 33.90 g/dLRDW SD 49 RDW CV 14.10 %MPV 11.50 fLPLT 170 NRBC# 0.00 NRBC% 0.0 %NEUT 68.10 %%LYMP 21.10 %%MONO 7.0 %%EOS 3.10 %%BASO 0.70 %#NEUT 6.19 #LYMP 1.92 #MONO 0.64 #EOS 0.28 #BASO 0.06 SEGS 61 BANDS 4 LYMPHS 25 MONOS 5 EOS 3.0 %BASO 2.0 % 10/16/2015 11:20 AM WBC 5.1 RBC 4.79 HGB 15.40 g/dLHCT 45.60 %MCV 95.0 fLMCH 32.20 pgMCHC 33.80 g/dLRDW SD 50 RDW CV 14.40 %MPV 11.30 fLPLT 156 NRBC# 0.00 NRBC% 0.0 %NEUT 57.20 %%LYMP 31.70 %%MONO 7.0 %%EOS 3.30 %%BASO 0.80 %#NEUT 2.92 #LYMP 1.62 #MONO 0.36 #EOS 0.17 #BASO 0.04 MANUAL DIFF NOT IND 10/17/2015 8:28 AM WBC 5.7 RBC 4.60 HGB 14.90 g/dLHCT 43.40 %MCV 94.0 fLMCH 32.40 pgMCHC 34.30 g/dLRDW SD 49 RDW CV 14.40 %MPV 12.0 fLPLT 166 NRBC# 0.00 NRBC% 0.0 %NEUT 59.40 %%LYMP 27.90 %%MONO 7.90 %%EOS 3.40 %%BASO 1.40 %#NEUT 3.37 #LYMP 1.58 #MONO 0.45 #EOS 0.19 #BASO 0.08 MANUAL DIFF NOT IND MICROALBUMIN UR <0.5 ug/mLGLUCOSE 95.0 mg/dLSODIUM 143.0 mmol/LPOTASSIUM 4.20 mmol/LCHLORIDE 106.0 mmol/LCO2 25.0 mmol/LBUN 13.0 mg/dLCREATININE 1.20 mg/ dLSGOT/AST 12.0 IU/LSGPT/ALT 18.0 IU/LALK PHOS 83.0 IU/LTOTAL PROTEIN 6.0 g/ dLALBUMIN 4.20 g/dLTOTAL BILI 0.30 mg/dLCALCIUM 8.90 mg/dLAGE 50 GFR NonAA 64 GFR AA 78 eGFR >60 mL/min/1.73meGFR AA* >60 TRIGLYCERIDES 258.0 mg/ dLCHOLESTEROL 131.0 mg/dLHDL 21.0 mg/dLTOT CHOL/HDL 6.2 LDL (CALC) 58.0 mg/ dLHemoglobin A1c 5.60 %Estim. Avg Glu (eAG) 114 10/23/2015 10:10 AM WBC 6.4 RBC 4.73 HGB 15.40 g/dLHCT 44.60 %MCV 94.0 fLH 32.60 pgMCHC 34.50 g/dLRDW SD 50 RDW CV 14.50 %MPV 11.90 fLPLT 172 NRBC# 0.00 NRBC% 0.0 %NEUT 58.90 %%LYMP 26.90 %%MONO 6.40 %%EOS 6.70 %%BASO 1.10 %#NEUT 3.76 #LYMP 1.72 #MONO 0.41 #EOS 0.43 #BASO 0.07 SEGS 53 BANDS 11 LYMPHS 24 MONOS 3 EOS 9.0 % 10/24/2015 9:55 AM INFLUENZA A & B NO INFLUENZA A OR B DETECTED 10/30/2015 10:29 AM WBC 6.1 RBC 4.47 HGB 14.40 g/dLHCT 42.40 %MCV 95.0 fLMCH 32.20 pgMCHC 34.0 g/dLRDW SD 50 RDW CV 14.40 %MPV 12.0 fLPLT 176 NRBC# 0.00 NRBC % 0.0 %NEUT 44.80 %%LYMP 38.90 %%MONO 6.90 %%EOS 8.40 %%BASO 1.0 %#NEUT 2.72 # LYMP 2.36 #MONO 0.42 #EOS 0.51 #BASO 0.06 SEGS 42 LYMPHS 42 MONOS 6 EOS 10.0 % 11/06/2015 11:10 AM WBC 5.2 RBC 4.71 HGB 15.10 g/dLHCT 44.80 %MCV 95.0 fLMCH 32.10 pgMCHC 33.70 g/dLRDW SD 50 RDW CV 14.50 %MPV 10.90 fLPLT 155 NRBC# 0.00 NRBC% 0.0 %NEUT 52.60 %%LYMP 30.60 %%MONO 6.50 %%EOS 9.0 %%BASO 1.30 %#NEUT 2.73 #LYMP 1.59 #MONO 0.34 #EOS 0.47 #BASO 0.07 SEGS 45 BANDS 8 LYMPHS 35 MONOS 5 EOS 7.0 % 11/13/2015 9:50 AM WBC 5.2 RBC 4.40 HGB 14.40 g/dLHCT 41.50 %MCV 94.0 fLMCH 32.70 pgMCHC 34.70 g/dLRDW SD 51 RDW CV 14.70 %MPV 11.0 fLPLT 155 NRBC# 0.00 NRBC% 0.0 %NEUT 50.30 %%LYMP 31.90 %%MONO 7.10 %%EOS 9.0 %%BASO 1.70 %#NEUT 2.61 #LYMP 1.66 #MONO 0.37 #EOS 0.47 #BASO 0.09 SEGS 40 BANDS 5 LYMPHS 36 MONOS 7 EOS 12.0 % 11/20/2015 10:27 AM WBC 5.9 RBC 4.50 HGB 14.80 g/dLHCT 43.70 %MCV 97.0 fLMCH 32.90 pgMCHC 33.90 g/dLRDW SD 54 RDW CV 15.40 %MPV 11.30 fLPLT 160 NRBC# 0.00 NRBC% 0.0 %NEUT 61.80 %%LYMP 24.40 %%MONO 5.90 %%EOS 6.40 %%BASO 1.50 %#NEUT 3.65 #LYMP 1.44 #MONO 0.35 #EOS 0.38 #BASO 0.09 SEGS 54 BANDS 6 LYMPHS 26 MONOS 8 EOS 6.0 %ANISO 1+ 11/27/2015 11:15 AM WBC 7.1 RBC 4.76 HGB 15.50 g/dLHCT 45.20 %MCV 95.0 fLMCH 32.60 pgMCHC 34.30 g/dLRDW SD 52 RDW CV 14.90 %MPV 11.20 fLPLT 190 NRBC# 0.00 NRBC% 0.0 %NEUT 63.80 %%LYMP 21.10 %%MONO 8.10 %%EOS 6.0 %%BASO 1.0 %#NEUT 4.54 #LYMP 1.50 #MONO 0.58 #EOS 0.43 #BASO 0.07 SEGS 55 BANDS 15 LYMPHS 23 MONOS 2 EOS 5.0 % 12/04/2015 11:20 AM WBC 8.6 RBC 4.77 HGB 15.60 g/dLHCT 44.90 %MCV 94.0 fLMCH 32.70 pgMCHC 34.70 g/dLRDW SD 50 RDW CV 14.50 %MPV 11.30 fLPLT 200 NRBC# 0.00 NRBC% 0.0 %NEUT 66.80 %%LYMP 21.60 %%MONO 5.10 %%EOS 5.30 %%BASO 1.20 %#NEUT 5.74 #LYMP 1.86 #MONO 0.44 #EOS 0.46 #BASO 0.10 SEGS 64 BANDS 11 LYMPHS 17 MONOS 2 EOS 4.0 %BASO 2.0 % 12/11/2015 8:50 AM WBC 5.9 RBC 4.86 HGB 15.70 g/dLHCT 46.10 %MCV 95.0 fLMCH 32.30 pgMCHC 34.10 g/dLRDW SD 50 RDW CV 14.30 %MPV 11.50 fLPLT 163 NRBC# 0.00 NRBC% 0.0 %NEUT 63.50 %%LYMP 24.0 %%MONO 5.90 %%EOS 5.60 %%BASO 1.0 %#NEUT 3.75 #LYMP 1.42 #MONO 0.35 #EOS 0.33 #BASO 0.06 MANUAL DIFF NOT IND GLUCOSE 135.0 mg/ dLSODIUM 139.0 mmol/LPOTASSIUM 4.30 mmol/LCHLORIDE 105.0 mmol/LCO2 25.0 mmol/ LBUN 10.0 mg/dLCREATININE 1.10 mg/dLSGOT/AST 12.0 IU/LSGPT/ALT 18.0 IU/LALK PHOS 81.0 IU/LTOTAL PROTEIN 6.20 g/dLALBUMIN 4.40 g/dLTOTAL BILI 0.30 mg/ dLCALCIUM 9.20 mg/dLAGE 50 GFR NonAA 71 GFR AA 86 eGFR >60 mL/min/1.73meGFR AA * >60 12/18/2015 11:35 AM WBC 6.7 RBC 4.65 HGB 15.10 g/dLHCT 44.60 %MCV 96.0 fLMCH 32.50 pgMCHC 33.90 g/dLRDW SD 51 RDW CV 14.40 %MPV 11.10 fLPLT 162 NRBC# 0.00 NRBC% 0.0 %NEUT 64.80 %%LYMP 23.40 %%MONO 6.0 %%EOS 4.90 %%BASO 0.90 %#NEUT 4.35 #LYMP 1.57 #MONO 0.40 #EOS 0.33 #BASO 0.06 SEGS 58 BANDS 13 LYMPHS 15 MONOS 2 EOS 12.0 % 12/25/2015 11:15 AM WBC 5.7 RBC 4.72 HGB 15.10 g/dLHCT 44.20 %MCV 94.0 fLMCH 32.0 pgMCHC 34.20 g/dLRDW SD 47 RDW CV 13.80 %MPV 11.20 fLPLT 188 NRBC# 0.00 NRBC% 0.0 %NEUT 52.20 %%LYMP 32.10 %%MONO 7.80 %%EOS 6.50 %%BASO 1.20 %#NEUT 2.96 #LYMP 1.82 #MONO 0.44 #EOS 0.37 #BASO 0.07 SEGS 57 BANDS 1 LYMPHS 29 MONOS 6 EOS 7.0 % 01/01/2016 11:30 AM WBC 5.2 RBC 4.61 HGB 14.80 g/dLHCT 43.50 %MCV 94.0 fLMCH 32.10 pgMCHC 34.0 g/dLRDW SD 48 RDW CV 13.80 %MPV 11.0 fLPLT 188 NRBC# 0.00 NRBC % 0.0 %NEUT 42.80 %%LYMP 39.80 %%MONO 9.10 %%EOS 5.80 %%BASO 1.90 %#NEUT 2.21 # LYMP 2.06 #MONO 0.47 #EOS 0.30 #BASO 0.10 SEGS 31 BANDS 3 LYMPHS 46 MONOS 12 EOS 7.0 %BASO 1.0 %ATYP LYMPHS 1+ % 01/08/2016 10:55 AM WBC 7.8 RBC 4.75 HGB 15.0 g/dLHCT 44.40 %MCV 94.0 fLMCH 31.60 pgMCHC 33.80 g/dLRDW SD 46 RDW CV 13.40 %MPV 10.90 fLPLT 171 NRBC# 0.00 NRBC% 0.0 %NEUT 64.80 %%LYMP 23.60 %%MONO 5.90 %%EOS 4.20 %%BASO 0.90 %#NEUT 5.08 #LYMP 1.85 #MONO 0.46 #EOS 0.33 #BASO 0.07 SEGS 62 BANDS 3 LYMPHS 29 MONOS 3 EOS 3.0 %ANISO 1+ 01/15/2016 10:20 AM WBC 4.9 RBC 4.64 HGB 14.80 g/dLHCT 43.30 %MCV 93.0 fLMCH 31.90 pgMCHC 34.20 g/dLRDW SD 47 RDW CV 13.70 %MPV 11.0 fLPLT 152 NRBC# 0.00 NRBC% 0.0 %NEUT 57.90 %%LYMP 28.70 %%MONO 5.90 %%EOS 5.50 %%BASO 1.40 %#NEUT 2.82 #LYMP 1.40 #MONO 0.29 #EOS 0.27 #BASO 0.07 SEGS 45 BANDS 11 LYMPHS 29 MONOS 8 EOS 7.0 % 01/21/2016 4:10 PM WBC 7.3 RBC 4.56 HGB 14.50 g/dLHCT 43.30 %MCV 95.0 fLMCH 31.80 pgMCHC 33.50 g/dLRDW SD 48 RDW CV 13.70 %MPV 10.70 fLPLT 178 NRBC# 0.00 NRBC% 0.0 %NEUT 62.50 %%LYMP 24.90 %%MONO 5.60 %%EOS 5.20 %%BASO 1.40 %#NEUT 4.53 #LYMP 1.81 #MONO 0.41 #EOS 0.38 #BASO 0.10 SEGS 64 BANDS 6 LYMPHS 15 MONOS 7 EOS 5.0 %BASO 1.0 %ATYP LYMPHS 2 01/29/2016 9:25 AM WBC 6.3 RBC 4.87 HGB 15.40 g/dLHCT 45.30 %MCV 93.0 fLMCH 31.60 pgMCHC 34.0 g/dLRDW SD 47 RDW CV 13.70 %MPV 10.80 fLPLT 172 NRBC# 0.00 NRBC% 0.0 %NEUT 53.60 %%LYMP 30.50 %%MONO 7.30 %%EOS 6.30 %%BASO 1.70 %#NEUT 3.37 #LYMP 1.92 #MONO 0.46 #EOS 0.40 #BASO 0.11 SEGS 43 BANDS 11 LYMPHS 37 MONOS 3 EOS 5.0 %BASO 1.0 % 02/05/2016 11:00 AM WBC 6.3 RBC 4.83 HGB 15.30 g/dLHCT 44.70 %MCV 93.0 fLMCH 31.70 pgMCHC 34.20 g/dLRDW SD 46 RDW CV 13.40 %MPV 11.40 fLPLT 154 NRBC# 0.00 NRBC% 0.0 %NEUT 63.30 %%LYMP 24.80 %%MONO 5.50 %%EOS 4.70 %%BASO 1.10 %#NEUT 4.01 #LYMP 1.57 #MONO 0.35 #EOS 0.30 #BASO 0.07 SEGS 59 BANDS 2 LYMPHS 30 MONOS 5 EOS 4.0 %RBC MORPH NORMAL GLUCOSE 120.0 mg/dLSODIUM 139.0 mmol/LPOTASSIUM 4.20 mmol/LCHLORIDE 106.0 mmol/LCO2 24.0 mmol/LBUN 11.0 mg/dLCREATININE 1.0 mg/ dLSGOT/AST 13.0 IU/LSGPT/ALT 17.0 IU/LALK PHOS 89.0 IU/LTOTAL PROTEIN 6.40 g/ dLALBUMIN 4.30 g/dLTOTAL BILI 0.30 mg/dLCALCIUM 9.0 mg/dLAGE 50 GFR NonAA 79 GFR AA 96 eGFR >60 mL/min/1.73meGFR AA* >60 02/12/2016 11:50 AM WBC 5.3 RBC 4.85 HGB 15.30 g/dLHCT 45.10 %MCV 93.0 fLMCH 31.50 pgMCHC 33.90 g/dLRDW SD 47 RDW CV 13.80 %MPV 11.0 fLPLT 159 NRBC# 0.00 NRBC% 0.0 %NEUT 52.50 %%LYMP 33.0 %%MONO 6.80 %%EOS 5.80 %%BASO 1.30 %#NEUT 2.79 #LYMP 1.75 #MONO 0.36 #EOS 0.31 #BASO 0.07 SEGS 46 BANDS 8 LYMPHS 36 MONOS 2 EOS 7.0 %BASO 1.0 %GLUCOSE 90.0 mg/dLSODIUM 139.0 mmol/LPOTASSIUM 4.40 mmol/ LCHLORIDE 107.0 mmol/LCO2 24.0 mmol/LBUN 13.0 mg/dLCREATININE 0.90 mg/dLSGOT/ AST 11.0 IU/LSGPT/ALT 18.0 IU/LALK PHOS 78.0 IU/LTOTAL PROTEIN 6.0 g/dLALBUMIN 4.10 g/dLTOTAL BILI 0.30 mg/dLCALCIUM 9.0 mg/dLAGE 50 GFR NonAA 89 GFR AA 108 eGFR >60 mL/min/1.73meGFR AA* >60 02/19/2016 10:35 AM WBC 6.2 RBC 4.74 HGB 15.10 g/dLHCT 43.90 %MCV 93.0 fLMCH 31.90 pgMCHC 34.40 g/dLRDW SD 47 RDW CV 13.80 %MPV 10.90 fLPLT 164 NRBC# 0.00 NRBC% 0.0 %NEUT 56.80 %%LYMP 29.60 %%MONO 5.50 %%EOS 5.90 %%BASO 1.50 %#NEUT 3.50 #LYMP 1.82 #MONO 0.34 #EOS 0.36 #BASO 0.09 SEGS 55 BANDS 2 LYMPHS 34 MONOS 2 EOS 6.0 %BASO 1.0 % 02/26/2016 9:50 AM WBC 5.6 RBC 4.79 HGB 15.30 g/dLHCT 44.10 %MCV 92.0 fLMCH 31.90 pgMCHC 34.70 g/dLRDW SD 47 RDW CV 13.70 %MPV 11.0 fLPLT 150 NRBC# 0.00 NRBC% 0.0 %NEUT 54.50 %%LYMP 32.0 %%MONO 5.40 %%EOS 6.30 %%BASO 1.30 %#NEUT 3.05 #LYMP 1.79 #MONO 0.30 #EOS 0.35 #BASO 0.07 SEGS 51 BANDS 3 LYMPHS 31 MONOS 5 EOS 6.0 %BASO 1.0 %ATYP LYMPHS 3 03/04/2016 11:55 AM WBC 7.5 RBC 4.95 HGB 15.60 g/dLHCT 45.70 %MCV 92.0 fLMCH 31.50 pgMCHC 34.10 g/dLRDW SD 47 RDW CV 13.90 %MPV 10.70 fLPLT 162 NRBC# 0.00 NRBC% 0.0 %NEUT 65.20 %%LYMP 23.80 %%MONO 4.80 %%EOS 4.40 %%BASO 1.10 %#NEUT 4.86 #LYMP 1.77 #MONO 0.36 #EOS 0.33 #BASO 0.08 SEGS 59 BANDS 4 LYMPHS 29 MONOS 5 METAS 2 ANISO 1+ 03/11/2016 11:55 AM WBC 5.9 RBC 4.74 HGB 14.90 g/dLHCT 43.30 %MCV 91.0 fLMCH 31.40 pgMCHC 34.40 g/dLRDW SD 46 RDW CV 13.70 %MPV 10.40 fLPLT 172 NRBC# 0.00 NRBC% 0.0 %NEUT 56.10 %%LYMP 30.50 %%MONO 5.60 %%EOS 6.10 %%BASO 1.40 %#NEUT 3.28 #LYMP 1.79 #MONO 0.33 #EOS 0.36 #BASO 0.08 SEGS 45 BANDS 6 LYMPHS 40 MONOS 7 EOS 2.0 % 03/18/2016 11:52 AM WBC 6.8 RBC 4.38 HGB 13.90 g/dLHCT 41.10 %MCV 94.0 fLMCH 31.70 pgMCHC 33.80 g/dLRDW SD 48 RDW CV 13.90 %MPV 10.40 fLPLT 155 NRBC# 0.00 NRBC% 0.0 %NEUT 53.80 %%LYMP 30.70 %%MONO 6.0 %%EOS 7.90 %%BASO 1.20 %#NEUT 3.66 #LYMP 2.09 #MONO 0.41 #EOS 0.54 #BASO 0.08 SEGS 54 BANDS 1 LYMPHS 34 MONOS 4 EOS 7.0 % 03/25/2016 10:38 AM WBC 6.5 RBC 4.53 HGB 14.10 g/dLHCT 42.30 %MCV 93.0 fLMCH 31.10 pgMCHC 33.30 g/dLRDW SD 49 RDW CV 14.20 %MPV 11.30 fLPLT 141 NRBC# 0.00 NRBC% 0.0 %NEUT 60.50 %%LYMP 23.10 %%MONO 6.0 %%EOS 8.70 %%BASO 1.40 %#NEUT 3.90 #LYMP 1.49 #MONO 0.39 #EOS 0.56 #BASO 0.09 SEGS 59 BANDS 3 LYMPHS 23 MONOS 6 EOS 8.0 %BASO 1.0 % 04/01/2016 9:40 AM WBC 5.4 RBC 4.17 HGB 13.0 g/dLHCT 39.0 %MCV 94.0 fLMCH 31.20 pgMCHC 33.30 g/dLRDW SD 49 RDW CV 14.40 %MPV 11.40 fLPLT 128 NRBC# 0.00 NRBC% 0.0 %NEUT 54.30 %%LYMP 25.60 %%MONO 7.20 %%EOS 10.80 %%BASO 1.50 %#NEUT 2.93 #LYMP 1.38 #MONO 0.39 #EOS 0.58 #BASO 0.08 SEGS 51 BANDS 5 LYMPHS 32 EOS 12.0 %ANISO 1+ 04/08/2016 10:55 AM WBC 6.7 RBC 4.29 HGB 13.40 g/dLHCT 39.60 %MCV 92.0 fLMCH 31.20 pgMCHC 33.80 g/dLRDW SD 48 RDW CV 14.20 %MPV 10.80 fLPLT 143 NRBC# 0.00 NRBC% 0.0 %NEUT 55.30 %%LYMP 27.10 %%MONO 4.50 %%EOS 11.70 %%BASO 1.30 %#NEUT 3.69 #LYMP 1.81 #MONO 0.30 #EOS 0.78 #BASO 0.09 SEGS 53 BANDS 5 LYMPHS 29 MONOS 3 EOS 10.0 % 04/15/2016 10:30 AM WBC 5.9 RBC 4.33 HGB 13.70 g/dLHCT 40.30 %MCV 93.0 fLMCH 31.60 pgMCHC 34.0 g/dLRDW SD 48 RDW CV 14.20 %MPV 10.80 fLPLT 163 NRBC# 0.00 NRBC% 0.0 %NEUT 59.40 %%LYMP 25.90 %%MONO 5.80 %%EOS 7.30 %%BASO 1.40 %#NEUT 3.49 #LYMP 1.52 #MONO 0.34 #EOS 0.43 #BASO 0.08 SEGS 45 BANDS 5 LYMPHS 37 MONOS 5 EOS 8.0 % 04/22/2016 10:00 AM WBC 5.6 RBC 4.44 HGB 14.30 g/dLHCT 41.60 %MCV 94.0 fLMCH 32.20 pgMCHC 34.40 g/dLRDW SD 50 RDW CV 14.40 %MPV 10.60 fLPLT 180 NRBC# 0.00 NRBC% 0.0 %NEUT 61.0 %%LYMP 24.80 %%MONO 6.30 %%EOS 6.70 %%BASO 0.70 %#NEUT 3.39 #LYMP 1.38 #MONO 0.35 #EOS 0.37 #BASO 0.04 MANUAL DIFF NOT IND 04/29/2016 10:10 AM WBC 9.5 RBC 4.12 HGB 13.0 g/dLHCT 38.90 %MCV 94.0 fLMCH 31.60 pgMCHC 33.40 g/dLRDW SD 49 RDW CV 14.20 %MPV 11.10 fLPLT 135 NRBC# 0.00 NRBC% 0.0 %NEUT 70.60 %%LYMP 20.80 %%MONO 4.0 %%EOS 3.60 %%BASO 0.70 %#NEUT 6.66 #LYMP 1.97 #MONO 0.38 #EOS 0.34 #BASO 0.07 SEGS 72 LYMPHS 22 MONOS 3 EOS 3.0 %ANISO 1+ 05/06/2016 10:35 AM WBC 6.1 RBC 4.29 HGB 13.60 g/dLHCT 40.20 %MCV 94.0 fLMCH 31.70 pgMCHC 33.80 g/dLRDW SD 48 RDW CV 14.20 %MPV 11.60 fLPLT 151 NRBC# 0.00 NRBC% 0.0 %NEUT 68.70 %%LYMP 21.60 %%MONO 4.60 %%EOS 3.60 %%BASO 1.0 %#NEUT 4.17 #LYMP 1.31 #MONO 0.28 #EOS 0.22 #BASO 0.06 SEGS 64 BANDS 1 LYMPHS 26 MONOS 4 EOS 4.0 %BASO 1.0 % 05/06/2016 10:37 AM TRIGLYCERIDES 279.0 mg/dLCHOLESTEROL 109.0 mg/dLHDL 22.0 mg /dLTOT CHOL/HDL 5.0 LDL (CALC) 31.0 mg/dLVALPROIC ACID <13 ug/mLTSH 0.930 uIU/ mLHGB A1C 5.20 %Est Avg Glucose 102.5 mg/dL 05/13/2016 9:20 AM WBC 5.9 RBC 3.96 HGB 12.50 g/dLHCT 38.40 %MCV 97.0 fLMCH 31.60 pgMCHC 32.60 g/dLRDW SD 51 RDW CV 14.40 %MPV 11.80 fLPLT 148 NRBC# 0.00 NRBC% 0.0 %NEUT 60.0 %%LYMP 27.40 %%MONO 5.60 %%EOS 5.80 %%BASO 0.90 %#NEUT 3.52 #LYMP 1.61 #MONO 0.33 #EOS 0.34 #BASO 0.05 SEGS 45 BANDS 5 LYMPHS 33 MONOS 9 EOS 7.0 %BASO 1.0 % 05/20/2016 10:05 AM WBC 6.0 RBC 3.91 HGB 12.30 g/dLHCT 36.80 %MCV 94.0 fLMCH 31.50 pgMCHC 33.40 g/dLRDW SD 48 RDW CV 14.10 %MPV 10.60 fLPLT 128 NRBC# 0.00 NRBC% 0.0 %NEUT 63.70 %%LYMP 24.90 %%MONO 4.60 %%EOS 5.50 %%BASO 1.0 %#NEUT 3.84 #LYMP 1.50 #MONO 0.28 #EOS 0.33 #BASO 0.06 SEGS 64 BANDS 4 LYMPHS 20 MONOS 6 EOS 6.0 % 05/27/2016 10:20 AM WBC 7.0 RBC 3.94 HGB 12.40 g/dLHCT 37.70 %MCV 96.0 fLMCH 31.50 pgMCHC 32.90 g/dLRDW SD 50 RDW CV 14.20 %MPV 11.0 fLPLT 129 NRBC# 0.00 NRBC% 0.0 %NEUT 69.30 %%LYMP 19.20 %%MONO 5.0 %%EOS 5.20 %%BASO 0.90 %#NEUT 4.84 #LYMP 1.34 #MONO 0.35 #EOS 0.36 #BASO 0.06 SEGS 63 BANDS 3 LYMPHS 24 MONOS 6 EOS 3.0 %ATYP LYMPHS 1 06/03/2016 11:45 AM GLUCOSE 119.0 mg/dLSODIUM 144.0 mmol/LPOTASSIUM 4.40 mmol/ LCHLORIDE 109.0 mmol/LCO2 25.0 mmol/LBUN 11.0 mg/dLCREATININE 1.20 mg/dLSGOT/ AST 10.0 IU/LSGPT/ALT 14.0 IU/LALK PHOS 72.0 IU/LTOTAL PROTEIN 5.60 g/dLALBUMIN 3.70 g/dLTOTAL BILI 0.20 mg/dLCALCIUM 8.80 mg/dLAGE 50 GFR NonAA 64 GFR AA 78 eGFR >60 mL/min/1.73meGFR AA* >60 WBC 4.2 RBC 3.67 HGB 12.0 g/dLHCT 35.80 % MCV 98.0 fLMCH 32.70 pgMCHC 33.50 g/dLRDW SD 52 RDW CV 14.50 %MPV 11.60 fLPLT 117 NRBC# 0.00 NRBC% 0.0 %NEUT 48.80 %%LYMP 35.70 %%MONO 5.50 %%EOS 8.60 %%BASO 1.20 %#NEUT 2.05 #LYMP 1.50 #MONO 0.23 #EOS 0.36 #BASO 0.05 SEGS 38 BANDS 5 LYMPHS 44 MONOS 5 EOS 8.0 % 06/10/2016 4:20 PM WBC 6.0 RBC 4.08 HGB 13.20 g/dLHCT 39.50 %MCV 97.0 fLMCH 32.40 pgMCHC 33.40 g/dLRDW SD 50 RDW CV 14.0 %MPV 11.40 fLPLT 143 NRBC# 0.00 NRBC% 0.0 %NEUT 51.20 %%LYMP 32.70 %%MONO 6.80 %%EOS 7.30 %%BASO 1.50 %#NEUT 3.08 #LYMP 1.97 #MONO 0.41 #EOS 0.44 #BASO 0.09 SEGS 53 LYMPHS 34 MONOS 4 EOS 9.0 % 06/17/2016 10:34 AM WBC 5.4 RBC 3.96 HGB 12.90 g/dLHCT 38.40 %MCV 97.0 fLMCH 32.60 pgMCHC 33.60 g/dLRDW SD 50 RDW CV 14.10 %MPV 10.90 fLPLT 140 NRBC# 0.00 NRBC% 0.0 %NEUT 57.0 %%LYMP 28.10 %%MONO 4.80 %%EOS 8.40 %%BASO 1.30 %#NEUT 3.07 #LYMP 1.51 #MONO 0.26 #EOS 0.45 #BASO 0.07 MANUAL DIFF NOT IND 06/24/2016 12:05 PM WBC 5.5 RBC 4.07 HGB 13.30 g/dLHCT 39.30 %MCV 97.0 fLMCH 32.70 pgMCHC 33.80 g/dLRDW SD 50 RDW CV 13.90 %MPV 11.10 fLPLT 165 NRBC# 0.00 NRBC% 0.0 %NEUT 52.70 %%LYMP 27.20 %%MONO 6.60 %%EOS 11.30 %%BASO 1.50 %#NEUT 2.89 #LYMP 1.49 #MONO 0.36 #EOS 0.62 #BASO 0.08 SEGS 43 BANDS 1 LYMPHS 37 MONOS 6 EOS 13.0 % 07/01/2016 10:50 AM WBC 6.1 RBC 4.15 HGB 13.50 g/dLHCT 39.90 %MCV 96.0 fLMCH 32.50 pgMCHC 33.80 g/dLRDW SD 47 RDW CV 13.20 %MPV 10.70 fLPLT 142 NRBC# 0.00 NRBC% 0.0 %NEUT 55.60 %%LYMP 27.20 %%MONO 5.20 %%EOS 10.0 %%BASO 1.50 %#NEUT 3.40 #LYMP 1.66 #MONO 0.32 #EOS 0.61 #BASO 0.09 SEGS 44 BANDS 10 LYMPHS 35 MONOS 7 EOS 4.0 % 07/08/2016 10:10 AM WBC 5.9 RBC 4.20 HGB 13.60 g/dLHCT 39.70 %MCV 95.0 fLMCH 32.40 pgMCHC 34.30 g/dLRDW SD 45 RDW CV 13.0 %MPV 11.0 fLPLT 143 NRBC# 0.00 NRBC % 0.0 %NEUT 59.70 %%LYMP 26.20 %%MONO 4.90 %%EOS 7.30 %%BASO 1.40 %#NEUT 3.54 # LYMP 1.55 #MONO 0.29 #EOS 0.43 #BASO 0.08 SEGS 55 BANDS 4 LYMPHS 27 MONOS 9 EOS 5.0 % 07/15/2016 11:25 AM WBC 7.1 RBC 4.19 HGB 13.60 g/dLHCT 39.90 %MCV 95.0 fLMCH 32.50 pgMCHC 34.10 g/dLRDW SD 46 RDW CV 13.10 %MPV 10.50 fLPLT 143 NRBC# 0.00 NRBC% 0.0 %NEUT 71.40 %%LYMP 13.50 %%MONO 5.50 %%EOS 8.10 %%BASO 1.10 %#NEUT 5.09 #LYMP 0.96 #MONO 0.39 #EOS 0.58 #BASO 0.08 MANUAL DIFF NOT IND 07/22/2016 11:10 AM WBC 5.4 RBC 4.31 HGB 13.80 g/dLHCT 40.80 %MCV 95.0 fLMCH 32.0 pgMCHC 33.80 g/dLRDW SD 45 RDW CV 12.90 %MPV 10.30 fLPLT 147 NRBC# 0.00 NRBC% 0.0 %NEUT 59.70 %%LYMP 28.50 %%MONO 5.0 %%EOS 5.50 %%BASO 0.70 %#NEUT 3.23 #LYMP 1.54 #MONO 0.27 #EOS 0.30 #BASO 0.04 SEGS 55 BANDS 7 LYMPHS 29 MONOS 4 EOS 5.0 % 07/30/2016 8:41 AM WBC 5.7 RBC 4.58 HGB 14.40 g/dLHCT 43.10 %MCV 94.0 fLMCH 31.40 pgMCHC 33.40 g/dLRDW SD 45 RDW CV 13.0 %MPV 10.50 fLPLT 149 NRBC# 0.00 NRBC% 0.0 %NEUT 53.90 %%LYMP 32.50 %%MONO 5.60 %%EOS 6.30 %%BASO 1.20 %#NEUT 3.05 #LYMP 1.84 #MONO 0.32 #EOS 0.36 #BASO 0.07 SEGS 50 BANDS 3 LYMPHS 35 MONOS 7 EOS 5.0 % 08/05/2016 10:42 AM WBC 6.6 RBC 4.54 HGB 14.40 g/dLHCT 43.0 %MCV 95.0 fLMCH 31.70 pgMCHC 33.50 g/dLRDW SD 45 RDW CV 12.90 %MPV 11.0 fLPLT 150 NRBC# 0.00 NRBC% 0.0 %NEUT 59.60 %%LYMP 28.90 %%MONO 4.80 %%EOS 5.0 %%BASO 1.20 %#NEUT 3.93 #LYMP 1.91 #MONO 0.32 #EOS 0.33 #BASO 0.08 SEGS 62 BANDS 3 LYMPHS 24 MONOS 6 EOS 5.0 % 08/12/2016 9:55 AM WBC 6.6 RBC 4.31 HGB 13.70 g/dLHCT 40.60 %MCV 94.0 fLMCH 31.80 pgMCHC 33.70 g/dLRDW SD 45 RDW CV 12.90 %MPV 11.30 fLPLT 138 NRBC# 0.00 NRBC% 0.0 %NEUT 56.70 %%LYMP 32.30 %%MONO 4.50 %%EOS 4.80 %%BASO 1.10 %#NEUT 3.75 #LYMP 2.14 #MONO 0.30 #EOS 0.32 #BASO 0.07 SEGS 64 BANDS 4 LYMPHS 20 MONOS 3 EOS 4.0 %ATYP LYMPHS 5 08/19/2016 11:00 AM WBC 4.9 RBC 4.27 HGB 13.50 g/dLHCT 40.30 %MCV 94.0 fLMCH 31.60 pgMCHC 33.50 g/dLRDW SD 45 RDW CV 13.10 %MPV 10.80 fLPLT 137 NRBC# 0.00 NRBC% 0.0 %NEUT 50.60 %%LYMP 34.40 %%MONO 6.20 %%EOS 6.80 %%BASO 1.60 %#NEUT 2.45 #LYMP 1.67 #MONO 0.30 #EOS 0.33 #BASO 0.08 SEGS 46 BANDS 3 LYMPHS 40 MONOS 4 EOS 6.0 %BASO 1.0 % 08/26/2016 10:00 AM GLUCOSE 140.0 mg/dLSODIUM 141.0 mmol/LPOTASSIUM 4.40 mmol/ LCHLORIDE 103.0 mmol/LCO2 29.0 mmol/LBUN 12.0 mg/dLCREATININE 1.30 mg/dLSGOT/ AST 11.0 IU/LSGPT/ALT 16.0 IU/LALK PHOS 72.0 IU/LTOTAL PROTEIN 6.50 g/dLALBUMIN 4.10 g/dLTOTAL BILI 0.20 mg/dLCALCIUM 9.0 mg/dLAGE 51 GFR NonAA 58 GFR AA 70 eGFR 58 eGFR AA* >60 WBC 9.5 RBC 4.26 HGB 13.70 g/dLHCT 40.60 %MCV 95.0 fLMCH 32.20 pgMCHC 33.70 g/dLRDW SD 45 RDW CV 13.10 %MPV 10.50 fLPLT 161 NRBC# 0.00 NRBC% 0.0 %NEUT 64.60 %%LYMP 24.20 %%MONO 5.20 %%EOS 4.40 %%BASO 1.0 %#NEUT 6.11 #LYMP 2.29 #MONO 0.49 #EOS 0.42 #BASO 0.09 SEGS 66 BANDS 5 LYMPHS 22 MONOS 5 EOS 2.0 %ATYP LYMPHS FEW % 09/02/2016 10:47 AM WBC 5.5 RBC 4.44 HGB 14.20 g/dLHCT 41.60 %MCV 94.0 fLMCH 32.0 pgMCHC 34.10 g/dLRDW SD 45 RDW CV 13.10 %MPV 10.50 fLPLT 142 NRBC# 0.00 NRBC% 0.0 %NEUT 49.40 %%LYMP 32.30 %%MONO 6.70 %%EOS 9.60 %%BASO 1.60 %#NEUT 2.72 #LYMP 1.78 #MONO 0.37 #EOS 0.53 #BASO 0.09 SEGS 52 BANDS 3 LYMPHS 35 EOS 10.0 %ANISO 1+ 09/09/2016 10:10 AM WBC 6.2 RBC 4.44 HGB 14.0 g/dLHCT 41.80 %MCV 94.0 fLMCH 31.50 pgMCHC 33.50 g/dLRDW SD 46 RDW CV 13.30 %MPV 10.80 fLPLT 170 NRBC# 0.00 NRBC% 0.0 %NEUT 49.0 %%LYMP 32.80 %%MONO 8.10 %%EOS 7.80 %%BASO 1.80 %#NEUT 3.02 #LYMP 2.02 #MONO 0.50 #EOS 0.48 #BASO 0.11 MANUAL DIFF NOT IND 09/16/2016 11:10 AM WBC 6.5 RBC 4.52 HGB 14.30 g/dLHCT 42.10 %MCV 93.0 fLMCH 31.60 pgMCHC 34.0 g/dLRDW SD 45 RDW CV 13.10 %MPV 10.10 fLPLT 144 NRBC# 0.00 NRBC% 0.0 %NEUT 50.80 %%LYMP 34.70 %%MONO 4.80 %%EOS 8.0 %%BASO 1.20 %#NEUT 3.28 #LYMP 2.24 #MONO 0.31 #EOS 0.52 #BASO 0.08 SEGS 51 BANDS 2 LYMPHS 35 MONOS 3 EOS 8.0 %BASO 1.0 % 09/22/2016 2:05 PM WBC 8.2 RBC 4.30 HGB 13.50 g/dLHCT 40.60 %MCV 94.0 fLMCH 31.40 pgMCHC 33.30 g/dLRDW SD 47 RDW CV 13.60 %MPV 11.0 fLPLT 159 NRBC# 0.00 NRBC% 0.0 %NEUT 61.10 %%LYMP 25.10 %%MONO 5.50 %%EOS 6.60 %%BASO 1.20 %#NEUT 5.01 #LYMP 2.06 #MONO 0.45 #EOS 0.54 #BASO 0.10 SEGS 47 BANDS 10 LYMPHS 28 MONOS 5 EOS 10.0 % 10/01/2016 10:56 AM WBC 9.4 RBC 4.80 HGB 15.10 g/dLHCT 44.70 %MCV 93.0 fLMCH 31.50 pgMCHC 33.80 g/dLRDW SD 46 RDW CV 13.40 %MPV 10.70 fLPLT 175 NRBC# 0.00 NRBC% 0.0 %NEUT 64.70 %%LYMP 22.80 %%MONO 6.10 %%EOS 4.90 %%BASO 0.90 %#NEUT 6.09 #LYMP 2.14 #MONO 0.57 #EOS 0.46 #BASO 0.08 SEGS 72 LYMPHS 23 MONOS 2 EOS 3.0 %ANISO 1+ History Of Immunizations Name Date Admin Mfg Name Mfg Code Trade Name Lot# Route Inj Vis Given Vis Pub CVX Influenza 07/10/2011 [employer] pasteur PMC Fluzone [id number] Intramuscular Left Deltoid 07/10/2011 05/01/2011 141 Influenza 07/11/2012 san[employer]i pasteur PMC Fluzone [id number] Intramuscular Left Deltoid 07/11/2012 04/07/2012 141 Influenza 07/16/2013 [employer]i pasteur PMC Fluzone > 3 Years [id number] Intramuscular Right Deltoid 07/16/2013 05/01/2013 141 X 04/28/2013 Not Entered NE Not Entered Not Entered Not Entered 201310/07/2016 109 Influenza 07/28/2015 Not Entered NE Fluarix Not Entered Not Entered 10/07/2016 141 Tdap 2009 Not Entered NE Not Entered Not Entered Not Entered 10/0710/07/2016 999 Tdap 05/03/2016 [employer] SKB [id number] [id number] Intramuscular Left Deltoid 05/03/2016 11/30/2014 115 History of Past Illness Name Date of Onset Comments Lumbar degenerative disc disease Aug 25 2009 1:13PM Lumbar Postlaminectomy syndrome Aug 25 2009 1:13PM Muscle Spasm Aug 25 2009 1:13PM SI joint pain Aug 25 2009 1:13PM Cervicalgia Aug 25 2009 1:13PM Pain in joint; ankle and foot Aug 25 2009 1:13PM Hypertension arthritis cervical neck pain Joint Pain chronic all joints,especially ankles,wrists,& fingers,bilat.knees, left shoulder lumbar back pain Diabetes Mellitus, Type II Gastroesophageal Reflux Osteoporosis Hyperlipidemia Depressive Disorder SI joint pain 08/25/2009 Pain in joint; ankle and foot 08/25/2009 Cervicalgia 08/25/2009 Lumbar degenerative disc disease Jan 09 2010 2:41PM Lumbar Postlaminectomy syndrome Jan 09 2010 2:41PM Muscle Spasm Jan 09 2010 2:41PM SI joint pain Jan 09 2010 2:41PM Cervicalgia Jan 09 2010 2:41PM Pain in joint; ankle and foot Jan 09 2010 2:41PM Essential Hypertension Jan 11 2010 9:04AM Diabetes Mellitus, Type II Jan 11 2010 9:04AM Hyperlipidemia Jan 11 2010 9:04AM Depressive Disorder Jan 11 2010 9:04AM Degeneration of thoracic or lumbar intervertebral disc; lumbar or lumbosacral intervertebral disc Jan 11 2010 9:04AM Gastroesophageal Reflux Jan 11 2010 9:04AM Lumbar degenerative disc disease Feb 08 2010 8:08AM Lumbar Postlaminectomy syndrome Feb 08 2010 8:08AM Muscle Spasm Feb 08 2010 8:08AM SI joint pain Feb 08 2010 8:08AM Cervicalgia Feb 08 2010 8:08AM Pain in joint; ankle and foot Feb 08 2010 8:08AM Essential Hypertension Feb 10 2010 10:00AM Diabetes Mellitus, Type II Feb 10 2010 10:00AM Hyperlipidemia Feb 10 2010 10:00AM Depressive Disorder Feb 10 2010 10:00AM Degeneration of thoracic or lumbar intervertebral disc; lumbar or lumbosacral intervertebral disc Feb 10 2010 10:00AM Gastroesophageal Reflux Feb 10 2010 10:00AM Leukopenia Migraine 09/06/2011 Carpal Tunnel Syndrome Feb 23 2010 11:22AM Pain in limb Feb 23 2010 10:31AM Skin Sensation Disturbance Feb 23 2010 10:31AM Right Carpal Tunnel Syndrome Feb 23 2010 10:31AM Essential Hypertension Mar 09 2010 9:51AM Diabetes Mellitus, Type II Mar 09 2010 9:51AM Hyperlipidemia Mar 09 2010 9:51AM Depressive Disorder Mar 09 2010 9:51AM Degeneration of thoracic or lumbar intervertebral disc; lumbar or lumbosacral intervertebral disc Mar 09 2010 9:51AM Gastroesophageal Reflux Mar 09 2010 9:51AM Lumbar degenerative disc disease Apr 04 2010 10:34AM Lumbar Postlaminectomy syndrome Apr 04 2010 10:34AM Muscle Spasm Apr 04 2010 10:34AM SI joint pain Apr 04 2010 10:34AM Cervicalgia Apr 04 2010 10:34AM Pain in joint; ankle and foot Apr 04 2010 10:34AM Lumbar degenerative disc disease May 30 2010 8:42AM Lumbar Postlaminectomy syndrome May 30 2010 8:42AM Muscle Spasm May 30 2010 8:42AM SI joint pain May 30 2010 8:42AM Cervicalgia May 30 2010 8:42AM Pain in joint; ankle and foot May 30 2010 8:42AM Esophageal Reflux 11/06/2013 Essential Hypertension Jun 08 2010 10:18AM Diabetes Mellitus, Type II Jun 08 2010 10:18AM Hyperlipidemia Jun 08 2010 10:18AM Depressive Disorder Jun 08 2010 10:18AM Degeneration of thoracic or lumbar intervertebral disc; lumbar or lumbosacral intervertebral disc Jun 08 2010 10:18AM Gastroesophageal Reflux Jun 08 2010 10:18AM Lumbar degenerative disc disease Jun 30 2010 8:39AM Lumbar Postlaminectomy syndrome Jun 30 2010 8:39AM Muscle Spasm Jun 30 2010 8:39AM SI joint pain Jun 30 2010 8:39AM Cervicalgia Jun 30 2010 8:39AM Pain in joint; ankle and foot Jun 30 2010 8:39AM Essential Hypertension Jul 04 2010 10:08AM Diabetes Mellitus, Type II Jul 04 2010 10:08AM Hyperlipidemia Jul 04 2010 10:08AM Chest Pain Jul 04 2010 10:08AM Depressive Disorder Jul 04 2010 10:08AM Degeneration of thoracic or lumbar intervertebral disc; lumbar or lumbosacral intervertebral disc Jul 04 2010 10:08AM Gastroesophageal Reflux Jul 04 2010 10:08AM Dyspnea Jul 04 2010 10:08AM Abdominal Pain Jul 04 2010 10:08AM Urinary Stream Slowing Jul 04 2010 10:08AM Flu Jul 20 2010 2:51PM Essential Hypertension Jul 27 2010 11:17AM Diabetes Mellitus, Type II Jul 27 2010 11:17AM Hyperlipidemia Jul 27 2010 11:17AM Depressive Disorder Jul 27 2010 11:17AM Degeneration of thoracic or lumbar intervertebral disc; lumbar or lumbosacral intervertebral disc Jul 27 2010 11:17AM Gastroesophageal Reflux Jul 27 2010 11:17AM Rhinitis, Allergic Jul 27 2010 11:17AM Essential Hypertension Aug 14 2010 11:05AM Diabetes Mellitus, Type II Aug 14 2010 11:05AM Hyperlipidemia Aug 14 2010 11:05AM Depressive Disorder Aug 14 2010 11:05AM Degeneration of thoracic or lumbar intervertebral disc; lumbar or lumbosacral intervertebral disc Aug 14 2010 11:05AM Gastroesophageal Reflux Aug 14 2010 11:05AM Rhinitis, Allergic Aug 14 2010 11:05AM Skin Condition, unspecified Aug 14 2010 11:05AM Lumbar degenerative disc disease Aug 29 2010 1:15PM Lumbar Postlaminectomy syndrome Aug 29 2010 1:15PM Muscle Spasm Aug 29 2010 1:15PM SI joint pain Aug 29 2010 1:15PM Cervicalgia Aug 29 2010 1:15PM Pain in joint; ankle and foot Aug 29 2010 1:15PM Essential Hypertension Sep 11 2010 9:54AM Diabetes Mellitus, Type II Sep 11 2010 9:54AM Hyperlipidemia Sep 11 2010 9:54AM Depressive Disorder Sep 11 2010 9:54AM Degeneration of thoracic or lumbar intervertebral disc; lumbar or lumbosacral intervertebral disc Sep 11 2010 9:54AM Gastroesophageal Reflux Sep 11 2010 9:54AM Rhinitis, Allergic Sep 11 2010 9:54AM Lumbar degenerative disc disease Sep 19 2010 3:46PM Lumbar Postlaminectomy syndrome Sep 19 2010 3:46PM Muscle Spasm Sep 19 2010 3:46PM SI joint pain Sep 19 2010 3:46PM Cervicalgia Sep 19 2010 3:46PM Pain in joint; ankle and foot Sep 19 2010 3:46PM Essential Hypertension Oct 16 2010 1:31PM Diabetes Mellitus, Type II Oct 16 2010 1:31PM Hyperlipidemia Oct 16 2010 1:31PM Depressive Disorder Oct 16 2010 1:31PM Degeneration of thoracic or lumbar intervertebral disc; lumbar or lumbosacral intervertebral disc Oct 16 2010 1:31PM Gastroesophageal Reflux Oct 16 2010 1:31PM Rhinitis, Allergic Oct 16 2010 1:31PM Pain in joint; hand Oct 16 2010 1:31PM Lumbar degenerative disc disease Oct 24 2010 8:22AM Lumbar Postlaminectomy syndrome Oct 24 2010 8:22AM Muscle Spasm Oct 24 2010 8:22AM SI joint pain Oct 24 2010 8:22AM Cervicalgia Oct 24 2010 8:22AM Pain in joint; ankle and foot Oct 24 2010 8:22AM Essential Hypertension Nov 14 2010 9:02AM Diabetes Mellitus, Type II Nov 14 2010 9:02AM Hyperlipidemia Nov 14 2010 9:02AM Depressive Disorder Nov 14 2010 9:02AM Degeneration of thoracic or lumbar intervertebral disc; lumbar or lumbosacral intervertebral disc Nov 14 2010 9:02AM Gastroesophageal Reflux Nov 14 2010 9:02AM Rhinitis, Allergic Nov 14 2010 9:02AM Lumbar degenerative disc disease Nov 17 2010 8:47AM Lumbar Postlaminectomy syndrome b 2010 8:47AM Muscle Spasm b 2010 8:47AM SI joint pain Nov 17 2010 8:47AM Cervicalgia Nov 17 2010 8:47AM Pain in joint; ankle and foot b 2010 8:47AM Ankle pain, chronic, right 09/06/2015 Chronic ankle pain, left 09/13/2015 Hypertension, Benign Essential Nov 29 2010 10:50AM Essential Hypertension Jan 01 2011 11:20AM Diabetes Mellitus, Type II Jan 01 2011 11:20AM Hyperlipidemia Jan 01 2011 11:20AM Depressive Disorder Jan 01 2011 11:20AM Degeneration of thoracic or lumbar intervertebral disc; lumbar or lumbosacral intervertebral disc Jan 01 2011 11:20AM Gastroesophageal Reflux Jan 01 2011 11:20AM Rhinitis, Allergic Jan 01 2011 11:20AM Essential Hypertension Jan 09 2011 8:44AM Diabetes Mellitus, Type II Jan 09 2011 8:44AM Hyperlipidemia Jan 09 2011 8:44AM Depressive Disorder Jan 09 2011 8:44AM Degeneration of thoracic or lumbar intervertebral disc; lumbar or lumbosacral intervertebral disc Jan 09 2011 8:44AM Gastroesophageal Reflux Jan 09 2011 8:44AM Rhinitis, Allergic Jan 09 2011 8:44AM Essential Hypertension Feb 08 2011 9:57AM Diabetes Mellitus, Type II Feb 08 2011 9:57AM Hyperlipidemia Feb 08 2011 9:57AM Depressive Disorder Feb 08 2011 9:57AM Degeneration of thoracic or lumbar intervertebral disc; lumbar or lumbosacral intervertebral disc Feb 08 2011 9:57AM Gastroesophageal Reflux Feb 08 2011 9:57AM Rhinitis, Allergic Feb 08 2011 9:57AM Essential Hypertension Feb 13 2011 3:19PM Diabetes Mellitus, Type II Feb 13 2011 3:19PM Hyperlipidemia Feb 13 2011 3:19PM Depressive Disorder Feb 13 2011 3:19PM Degeneration of thoracic or lumbar intervertebral disc; lumbar or lumbosacral intervertebral disc Feb 13 2011 3:19PM Gastroesophageal Reflux Feb 13 2011 3:19PM Rhinitis, Allergic Feb 13 2011 3:19PM Abscess Feb 13 2011 3:19PM Anxiety Disorder Feb 08 2011 9:57AM Lumbar degenerative disc disease Feb 14 2011 8:36AM Lumbar Postlaminectomy syndrome Feb 14 2011 8:36AM Muscle Spasm Feb 14 2011 8:36AM SI joint pain Feb 14 2011 8:36AM Cervicalgia Feb 14 2011 8:36AM Pain in joint; ankle and foot Feb 14 2011 8:36AM Essential Hypertension Mar 08 2011 9:30AM Diabetes Mellitus, Type II Mar 08 2011 9:30AM Hyperlipidemia Mar 08 2011 9:30AM Depressive Disorder Mar 08 2011 9:30AM Degeneration of thoracic or lumbar intervertebral disc; lumbar or lumbosacral intervertebral disc Mar 08 2011 9:30AM Gastroesophageal Reflux Mar 08 2011 9:30AM Rhinitis, Allergic Mar 08 2011 9:30AM Essential Hypertension Apr 17 2011 9:20AM Diabetes Mellitus, Type II Apr 17 2011 9:20AM Hyperlipidemia Apr 17 2011 9:20AM Depressive Disorder Apr 17 2011 9:20AM Degeneration of thoracic or lumbar intervertebral disc; lumbar or lumbosacral intervertebral disc Apr 17 2011 9:20AM Gastroesophageal Reflux Apr 17 2011 9:20AM Rhinitis, Allergic Apr 17 2011 9:20AM Osteoarthritis Apr 17 2011 9:20AM Failed Back Syndrome Apr 17 2011 9:20AM Pain in joint; ankle and foot Apr 17 2011 9:20AM Pain in joint; right ankle May 17 2011 9:21AM Lumbar degenerative disc disease May 17 2011 8:37AM Lumbar Postlaminectomy syndrome May 17 2011 8:37AM Muscle Spasm May 17 2011 8:37AM SI joint pain May 17 2011 8:37AM Cervicalgia May 17 2011 8:37AM Pain in joint; ankle and foot May 17 2011 8:37AM Lumbar degenerative disc disease Jun 22 2011 8:19AM Lumbar Postlaminectomy syndrome Jun 22 2011 8:19AM Muscle Spasm Jun 22 2011 8:19AM SI joint pain Jun 22 2011 8:19AM Cervicalgia Jun 22 2011 8:19AM Pain in joint; ankle and foot Jun 22 2011 8:19AM Left Pain in joint; ankle and foot Jun 22 2011 8:57AM Essential Hypertension Jul 10 2011 8:37AM Diabetes Mellitus, Type II Jul 10 2011 8:37AM Hyperlipidemia Jul 10 2011 8:37AM Osteoarthritis Jul 10 2011 8:37AM Depressive Disorder Jul 10 2011 8:37AM Degeneration of thoracic or lumbar intervertebral disc; lumbar or lumbosacral intervertebral disc Jul 10 2011 8:37AM Gastroesophageal Reflux Jul 10 2011 8:37AM Rhinitis, Allergic Jul 10 2011 8:37AM Lumbar degenerative disc disease Aug 17 2011 8:45AM Lumbar Postlaminectomy syndrome Aug 17 2011 8:45AM Muscle Spasm Aug 17 2011 8:45AM SI joint pain Aug 17 2011 8:45AM Cervicalgia Aug 17 2011 8:45AM Pain in joint; ankle and foot Aug 17 2011 8:45AM Essential Hypertension Sep 05 2011 3:38PM Diabetes Mellitus, Type II Sep 05 2011 3:38PM Hyperlipidemia Sep 05 2011 3:38PM Osteoarthritis Sep 05 2011 3:38PM Depressive Disorder Sep 05 2011 3:38PM Degeneration of thoracic or lumbar intervertebral disc; lumbar or lumbosacral intervertebral disc Sep 05 2011 3:38PM Gastroesophageal Reflux Sep 05 2011 3:38PM Rhinitis, Allergic Sep 05 2011 3:38PM Migraine Sep 05 2011 3:38PM Essential Hypertension Oct 10 2011 8:40AM Diabetes Mellitus, Type II Oct 10 2011 8:40AM Hyperlipidemia Oct 10 2011 8:40AM Osteoarthritis Oct 10 2011 8:40AM Depressive Disorder Oct 10 2011 8:40AM Degeneration of thoracic or lumbar intervertebral disc; lumbar or lumbosacral intervertebral disc Oct 10 2011 8:40AM Gastroesophageal Reflux Oct 10 2011 8:40AM Rhinitis, Allergic Oct 10 2011 8:40AM Migraine Oct 10 2011 8:40AM Lumbar degenerative disc disease Oct 17 2011 8:41AM Lumbar Postlaminectomy syndrome Oct 17 2011 8:41AM Muscle Spasm Oct 17 2011 8:41AM SI joint pain Oct 17 2011 8:41AM Cervicalgia Oct 17 2011 8:41AM Pain in joint; ankle and foot Oct 17 2011 8:41AM Left Pain in joint; ankle and foot Oct 17 2011 9:16AM Pain in joint; right ankle Oct 17 2011 9:18AM Upper Respiratory Infections Oct 30 2011 2:52PM Lumbar degenerative disc disease Nov 14 2011 8:40AM Lumbar Postlaminectomy syndrome Nov 14 2011 8:40AM Pain in joint; ankle and foot Nov 14 2011 8:40AM Gout Nov 14 2011 8:40AM Essential Hypertension Jan 09 2012 8:47AM Diabetes Mellitus, Type II Jan 09 2012 8:47AM Hyperlipidemia Jan 09 2012 8:47AM Osteoarthritis Jan 09 2012 8:47AM Depressive Disorder Jan 09 2012 8:47AM Degeneration of thoracic or lumbar intervertebral disc; lumbar or lumbosacral intervertebral disc Jan 09 2012 8:47AM Gastroesophageal Reflux Jan 09 2012 8:47AM Rhinitis, Allergic Jan 09 2012 8:47AM Migraine Jan 09 2012 8:47AM Pain in joint; right ankle Jan 16 2012 8:46AM Left Pain in joint; ankle and foot Jan 16 2012 8:48AM Lumbar degenerative disc disease Jan 16 2012 8:17AM Lumbar Postlaminectomy syndrome Jan 16 2012 8:17AM Pain in joint; ankle and foot Jan 16 2012 8:17AM Gout Jan 16 2012 8:17AM Essential Hypertension Apr 10 2012 9:31AM Diabetes Mellitus, Type II Apr 10 2012 9:31AM Hyperlipidemia Apr 10 2012 9:31AM Osteoarthritis Apr 10 2012 9:31AM Depressive Disorder Apr 10 2012 9:31AM Degeneration of thoracic or lumbar intervertebral disc; lumbar or lumbosacral intervertebral disc Apr 10 2012 9:31AM Gastroesophageal Reflux Apr 10 2012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 visit Sixto Estrada MD 10/13/2012 Office visit Eloisa Amor MD 09/17/2012 Office visit Sixto Estrada MD 09/04/2012 [facility] Sixto Estrada MD 08/19/2012 Office visit Eloisa Amor MD 08/14/2012 Office visit Sixto Estrada MD 08/07/2012 Office visit Eloisa Amor MD 07/24/2012 [facility] Sixto Estrada MD 07/17/2012 Office visit Sixto Estrada MD 07/11/2012 Office visit Eloisa Amor MD 06/02/2012 Office visit Eloisa Amor MD 04/30/2012 Office visit Eloisa Amor MD 04/16/2012 Office visit Sixto Estrada MD 04/10/2012 Office visit Eloisa Amor MD 02/28/2012 [facility] Sixto Estrada MD 01/16/2012 Office visit Sixto Estrada MD 01/09/2012 Office visit Eloisa Amor MD 11/14/2011 Office visit Sixto Estrada MD 10/30/2011 Office visit Eloisa Amor MD 10/17/2011 Office visit Sixto Estrada MD 10/10/2011 Office visit Eloisa Amor MD 09/18/2011 [facility] Sixto Estrada MD 09/05/2011 Office visit Eloisa Amor MD 08/17/2011 Office visit Sixto Estrada MD 07/10/2011 Office visit Eloisa Amor MD 06/22/2011 Office visit Sixto Estrada MD 06/13/2011 Voided Drew Morris MD 05/17/2011 Office visit Sixto Estrada MD 04/17/2011 Office visit Eloisa Amor MD 03/08/2011 Office visit Eloisa Amor MD 02/14/2011 Office visit Sixto Estrada MD 02/13/2011 Office visit Eloisa Amor MD 02/08/2011 Office visit Eloisa Amor MD 01/09/2011 Office visit Eloisa Amor MD 01/01/2011 Office visit Eloisa Amor MD 11/29/2010 Nurse visit Eloisa Amor MD 11/17/2010 Office visit Sixto Estrada MD 11/14/2010 Office visit Eloisa Amor MD 10/24/2010 Office visit Sixto Estrada MD 10/16/2010 Office visit Eloisa Amor MD 09/19/2010 Office visit Sixto Estrada MD 09/11/2010 Office visit Eloisa Amor MD 08/29/2010 Office visit Sixto Estrada MD 08/14/2010 Office visit Eloisa Amor MD 08/03/2010 [facility] Sixto Estrada MD 07/27/2010 Office visit Eloisa Amor MD 07/20/2010 [facility] Sixto Estrada MD 07/20/2010 Nurse visit Eloisa Amor MD 07/04/2010 Office visit Eloisa Amor MD 06/30/2010 Office visit Sixto Estrada MD 06/08/2010 Office visit Eloisa Amor MD 06/01/2010 Procedures Sixto Estrada MD 05/30/2010 Office visit Sixto Estrada MD 04/04/2010 Office visit Sixto Estrada MD 03/09/2010 Office visit Eloisa Amor MD 02/23/2010 Procedures Sixto Estrada MD 02/10/2010 Office visit Eloisa Amor MD 02/08/2010 Office visit Sixto Estrada MD 01/12/2010 Procedures Sixto Estrada MD 01/11/2010 Office visit Eloisa Amor MD 01/09/2010 Office visit Sixto Estrada MD 08/25/2009 Office visit Sixto Estrada MD 06/29/2009 Office visit Sixto Estrada MD
== END 2016-11-15 12:50 | disposition home or self-care (01) ==
LOC: PREOP 12:24
PROVIDERS: ATTEND Orthopaedic Surgery
DX: Z01.818 Encounter for other preprocedural examination (principal); Z11.2 Encounter for screening for other bacterial diseases; G56.21 Lesion of ulnar nerve, right upper limb; M77.01 Medial epicondylitis, right elbow
CPT/HCPCS: 87081

== ENCOUNTER 2016-11-21 07:47 | Day surgery (SDC) | payer MEDICARE, OTHER ==
--- NOTE | 2016-11-16 09:10 | HISTORY AND PHYSICAL ---
DICTATING PHYSICIAN: Dr. Casanova DATE OF ADMISSION: 11/21/2016 Outpatient surgery for right elbow medial epicondyle debridement and repair with cubital tunnel release. HISTORY: The patient is a 51-year-old, [id number] gentleman with complaints of right elbow pain. He reports pain on the medial aspect of his elbow. He reports paresthesias into his small and ring fingers which is worse at night. He reports this started when he lifted a spare tire this summer. He felt a tearing sensation. He reports that the pain has progressed to the point where he is having difficulty with his activities of daily living and due to failure to respond to conservative measures, the patient has elected to proceed with surgical intervention. REVIEW OF SYSTEMS: No chest pain, no shortness of breath. No dysuria. PAST MEDICAL HISTORY: 1. Leukopenia. 2. Diabetes. 3. Hypertension. 4. Cerebrovascular accident. 5. Arthritis. 6. Hypercholesterolemia. 7. Migraine. 8. Headaches. 9. Back pain. 10. Reflux. SURGICAL HISTORY: 1. Cholecystectomy. 2. Tonsillectomy. 3. Finger. 4. Carpal tunnel release. 5. Neck. 6. Back. 7. Right shoulder arthroscopy. FAMILY HISTORY: Diabetes, coronary artery disease. PRIMARY CARE PROVIDER: Dr. Mosley MEDICATIONS: 1. Metformin. 2. Lisinopril. 3. Pravachol. 4. Gabapentin. 5. Buspirone. 6. Meclizine. 7. Alprazolam. 8. Propranolol. 9. Hydrocodone. 10. Sumatriptan. 11. Citalopram. 12. Omeprazole. 13. Glipizide. 14. Zarxio. ALLERGIES: No known drug allergies. SOCIAL HISTORY: The patient has 15 pack-year history. He denies alcohol use. PHYSICAL EXAMINATION: The patient's well-developed, well-nourished, in no acute distress. HEENT: Normocephalic, atraumatic. Pupils are equal, and reactive, oropharynx clear. NECK: Supple with no lymphadenopathy. LUNGS: Clear to auscultation bilaterally. HEART: Regular rate and rhythm. ABDOMEN: Soft, nontender, nondistended. EXTREMITY EXAM: The right elbow demonstrates tenderness in his medial epicondyle. Positive Tinel's at cubital tunnel, positive elbow flexion test. He has weakness with finger abduction. Pain with resisted MCP flexion and wrist flexion. No skin lesions are noted. He has full elbow flexion and extension. He has decreased sensation in ulnar distribution. IMPRESSION: Right elbow medial epicondylitis with associated cubital tunnel syndrome. PLAN: Right elbow medial epicondyle debridement/repair with cubital tunnel release. The risks, benefits, options, ramifications and recovery were discussed with length with the patient and he understands and wishes to proceed. Job ID: [id number] Dictated Date: 11/15/2016 15:52:45 Rail Car Loader Date: 11/16/2016 08:56:38/jose
[~2016-11-21] VITALS: Ht 177.8 cm; Wt 90.0 kg
[~2016-11-21 07:47] MED LIST changes: +CITA40TA11 PO; +FILG480S2 IJ; +LISI40TA PO; +MECL-106 PO; +OMEP40CA36 PO; +SUMA100T3 PO
[2016-11-21] MEDS ORDERED: NS (IVPB) 50 ML ONE (08:04)
[2016-11-21] MEDS ORDERED: ceFAZolin 1,000 MG (ANCEF) VIAL ONE (08:04)
[2016-11-21 08:10] VITALS: BP 110/74
[2016-11-21] MEDS ORDERED: LACTATED RINGERS 1,000 ML IV PRN (08:27)
[2016-11-21] MEDS ORDERED: FAMOTIDINE 20MG/2ML IV (PEPCID) IV ONE (08:30)
--- NOTE | 2016-11-21 08:39 | Progress Note-Pre Operative ---
Pre-Operative Progress Note H&P Reviewed The H&P was reviewed, patient examined and no changes noted. Date H&P Reviewed: Nov 21, 2016 Time H&P Reviewed: 08:39 Pre-Operative Diagnosis: right cubital tunnel syndrome and medial epicondylitis GIANNI VAZQUEZ MD Nov 21, 2016 08:39
--- NOTE | 2016-11-21 08:41 | Progress Note-Post Operative ---
Post-Operative Progess Note Assignment Manager Jose Tam Pre-Operative Diagnosis right cubital tunnel syndrome and medial epicondylitis Post-Operative Diagnosis right cubital tunnel syndrome and medial epicondylitis Post-Op Procedure Note Date of Procedure: Nov 21, 2016 Name of Procedure: right cubital tunnel release and medial epicondyle debidement and repair Anesthesia Type GETA Estimated blood loss (mL): minimal Packing: none Specimen(s) collected none GIANNI VAZQUEZ MD Nov 21, 2016 08:41
[2016-11-21] MEDS ORDERED: oxyCODONE/APAP 5/325MG (PERCOCET 5) TABLET PO PRN (08:45)
[2016-11-21] MEDS ORDERED: MIDAZOLAM 2 MG/2 ML (VERSED) VIAL ONE (09:01)
[2016-11-21] MEDS ORDERED: proPOfol 200 MG/20 ML (DIPRIVAN) VIAL IV ONE (09:01)
[2016-11-21] MEDS ORDERED: ONDANSETRON 4 MG/2 ML (SDV) Z0FRAN ONE ×2 (09:01→11:14)
[2016-11-21] MEDS ORDERED: LACTATED RINGERS 1,000 ML IV ONE ×2 (09:01→10:18)
[2016-11-21] MEDS ORDERED: fentaNYL INJECTION 100 MCG/2 ML AMP ONE ×2 (09:01→10:19)
[2016-11-21] MEDS ORDERED: BUPIVACAINE 0.25% 30 ML (SENSORCAINE) VIAL ONE (09:07)
[2016-11-21] MEDS ORDERED: ceFAZolin 1 GM/NS 50 ML IVPB IV ONE ×2 (09:15)
[2016-11-21] MEDS ORDERED: morphine INJ 10 MG/ML 1ML (SYR OR VIAL) ONE (10:18)
[2016-11-21] MEDS ORDERED: SEVOFLURANE (ULTANE) 15 ML INHAL SOLN ONE (10:25)
[2016-11-21] MEDS: morphine INJ 10 MG/ML 1ML (SYR OR VIAL) IV PRN ×2 (11:01→11:06)
[2016-11-21] MEDS: ONDANSETRON 4 MG/2 ML (SDV) Z0FRAN IV PRN ×2 (11:15→11:16)
[2016-11-21 11:45] VITALS: BP 121/83
[2016-11-21] MEDS ORDERED: OXYC-471 PO (12:09)
[2016-11-21 12:15] VITALS: BP 114/75
[2016-11-21 12:45] VITALS: BP 119/70
--- NOTE | 2016-11-22 13:21 | OPERATIVE REPORT ---
PROCEDURE PHYSICIAN: IGANNI VAZQUEZ DATE OF PROCEDURE: 11/21/2016 PREOPERATIVE DIAGNOSIS: 1. Right cubital tunnel syndrome. 2. Right elbow medial epicondylitis. POSTOPERATIVE DIAGNOSES: 1. Right cubital tunnel syndrome. 2. Right elbow medial epicondylitis. PROCEDURE: 1. Right cubital tunnel release. 2. Right elbow medial epicondyle debridement/repair. SURGEON: Jocelyne REVIVAL CLERK: Jose Tam. ANESTHESIA: General endotracheal by CRNA. Albertina Shin TOURNIQUET TIME: 11 minutes at 250 mmHg. ESTIMATED BLOOD LOSS: Minimal. DRAINS: None. COMPLICATIONS: None. POSTOPERATIVE PLAN: Splint wear for lifting for 4 weeks. The patient was transported to recovery room, awake, in stable condition. STATEMENT OF MEDICAL NECESSITY: The patient is a 51-year-old, [id number] gentleman who injured his right elbow while changing a tire. Since then he had paresthesias in his ring and small fingers, as well as tenderness at his medial aspect of his elbow. On exam he had a positive Tinel's at the carpal tunnel, positive elbow flexion test, which reproduces symptoms. He is also tender over his medial epicondyle and due to functional impairment and failure to improve with conservative measures, the patient elected to proceed with surgical intervention. PROCEDURE: After risks and benefits of procedure were discussed and questions were answered an informed consent was signed and placed on chart. The operative site was confirmed in the preoperative holding area and initialed by the surgeon. The patient was then transported to the operating room and after adequate general endotracheal anesthetic were obtained a timeout was called confirming the operative site. The right upper extremity prepped and draped in the usual sterile fashion. An L-shaped incision was made posterior to the medial epicondyle. The underlying soft tissues were carefully dissected. The ulnar nerve was identified proximal to the medial epicondyle and dissected free to 0.9 cm proximally. This was then dissected through the cubital tunnel and into the flexor/pronator mass. There was fusiform swelling of the nerve just distal to the medial epicondyle but it was intact. The elbow was taken through a range of motion and no subluxation was noted, therefore transposition was not performed. The medial epicondyle flexor/pronator mass was then identified and there was a degenerative tissue noted which was excised longitudinally. That was trephinated and then oversewn with 2-0 Vicryl. The tourniquet was deflated. The wound was copiously irrigated and then 2-0 Vicryl was used to reapproximate subcutaneous tissue. The skin was closed with 4-0 nylon running, alternating horizontal mattress fashion. An incision was infiltrated with plain Marcaine. A soft dressing and wrist splint were applied and the patient was transported to the recovery room, awake, in stable condition. Job ID: [id number] Dictated Date: 11/21/2016 10:39:35 Dust Sampler Date: 11/22/2016 13:11:33 / jose
== END 2016-11-21 12:50 | disposition home or self-care (01) ==
LOC: SDC 07:47
PROVIDERS: ATTEND Orthopaedic Surgery
DX: G56.21 Lesion of ulnar nerve, right upper limb (principal); M77.01 Medial epicondylitis, right elbow; E11.9 Type 2 diabetes mellitus without complications; Z79.84 Long term (current) use of oral hypoglycemic drugs
CPT/HCPCS: 82962